=== PATIENT | male | born 1965 | race Caucasian/White ===

== ENCOUNTER 2020-07-27 15:39 | Observation (INO) ==
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
[2020-07-27] MEDS ORDERED: KETOROLAC 30 MG/ML VIAL IV STA (15:59)
[2020-07-27] MEDS ORDERED: PROCHLORPERAZINE 2 ML IV ONE (15:59)
[2020-07-27] MEDS ORDERED: SODIUM CHLORIDE 0.9% 1000ML 1,000 ML IV SCH ×2 (16:00→17:00)
[2020-07-27 16:46] LABS: Basophils # (auto) 0.02 K/uL (0-0.2); Basophils % (auto) 0.2 %; Hematocrit (blood only) 41.4 % (42-52); Hemoglobin 14.2 g/dL (14.0-18.0); Immature Granulocytes # (auto) 0.06 K/uL (0.00-0.02); Immature Granulocytes % (auto) 0.5 %; Lymphocytes # (auto) 0.39 K/uL (1.2-3.4); Lymphocytes % (auto) 3.1 %; Mean Corpuscular Hemoglobin 33.6 pg (25-34); Mean Corpuscular Hgb Conc 34.3 g/dL (32-36); Mean Corpuscular Volume 97.9 fL (80-100); Mean Platelet Volume 10.9 fL (7.4-10.4); Monocytes # (auto) 1.12 K/uL (0.11-0.59); Monocytes % (auto) 8.8 %; Neutrophils # (auto) 11.18 K/uL (1.4-6.5); Neutrophils % (auto) 87.4 %; Platelet Count 113 K/uL (130-400); RDW Coefficient of Variation 12.5 % (11.5-14.5); RDW Standard Deviation 43.9 fL (36.4-46.3); Red Blood Count 4.23 M/uL (4.7-6.1); White Blood Count 12.77 K/uL (4.8-10.8)
[2020-07-27 16:58] LABS: INR 1.2 (0.9-1.1); Partial Thromboplastin Time 28.8 Seconds (21.0-31.0)
[2020-07-27 17:05] LABS: Albumin Level 3.3 gm/dl (3.4-5.0); BUN Creatinine Ratio 3.8 (10-20); Calcium 9.4 mg/dl (8.5-10.1); Creatinine Clr Calc Pharmacy 52.5 ml/min; Est GFR (African American) 51.1; Est GFR (Non-African American) 44.1; Magnesium 1.1 mg/dl (1.8-2.4); Potassium 3.5 mmol/L (3.5-5.1)
[2020-07-27 17:16] LABS: Albumin Globulin Ratio 0.7 (0.9-2); Bilirubin,Total 2.4 mg/dl (0.2-1); Globulin 4.6 gm/dl (2.5-4.0); Total Protein 7.9 gm/dl (6.4-8.2); Troponin I 0.065 ng/ml (0-0.045)
[2020-07-27] MEDS ORDERED: SODIUM CHLORIDE 0.9% 1000ML 500 ML IV ONE (17:47)
[2020-07-27] MEDS ORDERED: VANCOMYCIN HCL 2,000 MG in SODIUM CHLORIDE 0.9% 500 ML IV ONE (17:47)
[2020-07-27] MEDS ORDERED: PIPERACILL/TAZOBAC CONSULT ACTIVE PRN (17:47)
[2020-07-27] MEDS ORDERED: VANCOMYCIN CONSULT ACTIVE PRN (17:47)
[2020-07-27] MEDS ORDERED: PIPERACILLIN/TAZOBACTAM 4.5 GM/120 ML BAG IV ONE (17:47)
[2020-07-27] MEDS ORDERED: OPTIRAY 320 125ml IV ONE (18:01)
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
--- NOTE | 2020-07-27 18:25 | CT Scan Report ---
UNENHANCED CT OF THE BRAIN; CT ANGIOGRAM OF THE BRAIN; CT ANGIOGRAM OF THE NECK CLINICAL HISTORY: Dizziness. Neck pain. COMPARISON STUDY: No priors. TECHNIQUE: Unenhanced axial CT scan of the brain is performed. Subsequently, following the IV adminis tration of 120 of Optiray 320, CT angiogram of the head and neck was performed from the aortic arch t o the vertex. Images are reviewed in the axial, sagittal, and coronal planes. 3-D MIPS images are cre ated and assessed. IV contrast was administered without complication. All measurements were calculate d based on NASCET criteria. A dose lowering technique was utilized adhering to the principles of ALA RA. CT DOSE: 1193.53 mGy.cm FINDINGS: Brain parenchyma: The brain parenchyma is normal in appearance. There is no hemorrhage, mass effect, or evidence of acute territorial ischemia by CT criteria. There is no evidence of enhancing mass lesi on on the angiogram phase images. The ventricles, sulci, and cisterns are normal in configuration. Gr ay-white matter differentiation is preserved. No extra-axial fluid collection is seen. Thoracic aorta: There is mild atherosclerotic calcification of the thoracic aorta. Visualized portion s of the thoracic aorta are normal in caliber. The aortic arch demonstrates standard 3-vessel anatomy . Right carotid arterial system: The right common carotid artery is widely patent, as are the right int ernal and external carotid arteries. Mild calcified plaque is seen in the carotid bulb. There is tort uosity of the distal right internal carotid artery. Left carotid arterial system: The left common carotid artery is widely patent. Atherosclerotic plaque in the carotid bulb causes less than 50% stenosis at the origin of the left internal carotid artery. The remainder of the left internal carotid artery is widely patent, as is the left external carotid artery. There is tortuosity of the distal internal carotid artery. Vertebral arteries: The vertebral arteries are widely patent bilaterally and codominant. Subclavian arteries: Widely patent bilaterally. Intracranial vasculature: There is a right posterior communicating artery. The internal carotid arter ies are patent at the skull base, as are the anterior and middle cerebral arteries bilaterally. The v ertebrobasilar system and posterior cerebral arteries are widely patent. The vertebral arteries are c odominant. There is no aneurysm, high-grade stenosis, or focal vessel cut off seen throughout the int racranial circulation. Jugular veins: Patent bilaterally. Dural sinuses: Patent. Lung apices: Partially visualized upper lobe lung parenchyma appears clear. Soft tissues: The visualized pharyngeal soft tissues are normal in appearance noting angiographic pha se technique. There are numerous calcified tonsilloliths. The oropharyngeal airway appears widely pat ent. The salivary and thyroid glands are normal in appearance. No cervical lymphadenopathy is seen. Skeletal structures: The calvarium appears intact. The cervical spine is within normal limits. No lyt ic or blastic lesion is seen. Orbits: The bony orbits are intact. Orbital contents are normal as imaged. Sinuses and mastoids: The paranasal sinuses are clear. The mastoid air cells are well pneumatized. IMPRESSION: 1. There is no hemorrhage, mass effect, or evidence of acute territorial ischemia by CT criteria. 2. Unremarkable CT angiogram of the brain. 3. Atherosclerotic plaque causes less than 50% luminal narrowing at the origin of the left internal c arotid artery. 4. Otherwise unremarkable CT angiogram of the neck. ACT 112: Negative or not required by law. Electronically signed by: Helder Victor M.D. 07/27/2020 6:24 PM
--- NOTE | 2020-07-27 19:23 | XRay Report ---
SINGLE VIEW CHEST CLINICAL HISTORY: Sepsis. FINDINGS: An AP, portable, upright chest radiograph is compared to study dated 10/02/2018. The examina tion is degraded by portable technique and patient rotation. The cardiomediastinal silhouette is unr emarkable. There is mild elevation of the right hemidiaphragm and bibasilar atelectasis. The lungs an d pleural spaces are otherwise clear. No pneumothorax is seen. The bony thorax is grossly intact. IMPRESSION: No active disease in the chest. ACT 112: Negative or not required by law. Electronically signed by: Helder Victor M.D. 07/27/2020 7:22 PM
[2020-07-27 20:20] LABS: Appearance Urine Cloudy (Clear); Bacteria Urine Automated 4+ (Negative); Bilirubin Urine Negative (Negative); Blood Urine 3+ (Negative); Color Urine Orange; Glucose Urine UA Negative (Negative); Ketones Urine Negative (Negative); Leukocyte Esterase Urine 2+ (Negative); Nitrite Urine Positive (Negative); Protein Urine Trace (Negative); RBC Urine Automated >30 /hpf (0-4); Specific Gravity Urine 1.044 (1.000-1.030); Urobilinogen Urine Negative (Negative); WBC Urine Automated >30 /hpf (0-5)
--- NOTE | 2020-07-27 20:36 | Magnetic Resonance Report ---
MRI OF THE BRAIN WITHOUT IV CONTRAST CLINICAL HISTORY: Dizziness. Weakness. Gait dysfunction. COMPARISON STUDY: CT of the brain dated 07/27/2020. TECHNIQUE: MRI of the brain was performed utilizing various T1 and T2-weighted sequences in the axial , sagittal, and coronal planes. IV contrast was not administered for this examination. FINDINGS: Brain parenchyma: There is age-related involutional change noting minimal microscopic hepatic disease . There is no hemorrhage or mass effect. There is no restricted diffusion to suggest acute ischemia. Chang-white matter differentiation is preserved. No extra-axial fluid collection is seen. The cerebell ar tonsils are normal in configuration. Ventricles, sulci, and cisterns: Prominent secondary to involutional change. Pituitary and sella: Unremarkable. Intracranial vasculature: Normal flow voids are maintained at the skull base. Orbits: The bony orbits are grossly intact. Orbital contents are normal in appearance. Sinuses and mastoids: Clear. Calvarium: Unremarkable. Cervical cord: Partially visualized cervical spinal cord is normal in morphology and signal intensity . IMPRESSION: No acute intracranial abnormality. ACT 112: Negative or not required by law. Electronically signed by: Helder Victor M.D. 07/27/2020 8:34 PM
[2020-07-27] MEDS ORDERED: ACETAMINOPHEN 325 MG TAB PO PRN (22:20)
[2020-07-27] MEDS ORDERED: PHARMACIST DISCHARGE MED REC CONSULT PRN (22:20)
[2020-07-27] MEDS ORDERED: ONDANSETRON INJ 2 MG/ML 2 ML VIAL IV PRN (22:20)
[2020-07-27] MEDS ORDERED: INFLUENZA ADMINISTRATION CHARGE ONE (22:52)
[2020-07-27] MEDS ORDERED: INFLUENZA VIRUS QUAD VACCINE 0.5 ML SYR IM ONE (22:52)
[2020-07-27] MEDS ORDERED: MULTI-VITAMIN INFUSION 10 ML, THIAMINE HCL 100 MG, FOLIC ACID 1 MG in SODIUM CHLORIDE 0... IV ONE (23:00)
[2020-07-27] MEDS: HEPARIN SOD 5,000 UNIT/0.5 ML VIAL SQ SCH (23:10)
[2020-07-27 23:32] LABS: Lyme Ab IgG w/WB Rflx Negative (Negative); Lyme Ab IgM w/WB Rflx Negative (Negative)
[2020-07-28 07:59] LABS: Hematocrit (blood only) 41.7 % (42-52); Mean Corpuscular Hemoglobin 33.4 pg (25-34); Mean Corpuscular Hgb Conc 33.6 g/dL (32-36); Mean Corpuscular Volume 99.5 fL (80-100); RDW Coefficient of Variation 12.7 % (11.5-14.5); RDW Standard Deviation 46.3 fL (36.4-46.3); Red Blood Count 4.19 M/uL (4.7-6.1)
[2020-07-28] MEDS: MULTIVITAMIN TAB PO SCH (08:05)
[2020-07-28] MEDS: FOLIC ACID 400 MCG TAB PO SCH (08:05)
[2020-07-28] MEDS: THIAMINE HCL 100 MG TAB PO SCH (08:05)
[2020-07-28] MEDS: HEPARIN SOD 5,000 UNIT/0.5 ML VIAL SQ SCH ×2 (08:05→22:02)
[2020-07-28] MEDS: ASPIRIN 81 MG ECTAB PO SCH (08:05)
[2020-07-28 08:09] LABS: Mean Platelet Volume 11.2 fL (7.4-10.4); Platelet Count 92 K/uL (130-400)
[2020-07-28] MEDS ORDERED: PIPERACILL/TAZOBAC CONSULT ACTIVE PRN (08:22)
[2020-07-28 08:24] LABS: Basophils # (auto) 0.02 K/uL (0-0.2); Basophils % (auto) 0.1 %; Immature Granulocytes # (auto) 0.11 K/uL (0.00-0.02); Immature Granulocytes % (auto) 0.6 %; Lymphocytes # (auto) 0.74 K/uL (1.2-3.4); Lymphocytes % (auto) 4.1 %; Monocytes # (auto) 1.49 K/uL (0.11-0.59); Monocytes % (auto) 8.2 %; Neutrophils # (auto) 15.74 K/uL (1.4-6.5)
[2020-07-28] MEDS ORDERED: SODIUM CHLORIDE 0.9% 1000ML 1,000 ML IV SCH (08:30)
[2020-07-28 08:33] LABS: BUN Creatinine Ratio 8.5 (10-20); Creatinine Clr Calc Pharmacy 85.8 ml/min; Est GFR (African American) 86.8; Est GFR (Non-African American) 74.9; Potassium 3.7 mmol/L (3.5-5.1)
--- NOTE | 2020-07-28 08:34 | Hospitalist Progress Note ---
Date of Service July 28, 2020 Assessment & Plan (1) Gram-negative bacteremia: Patient is a 55 year old male with PMHx Alcohol abuse, Tobacco use, Chronic low back pain, chronic diarrhea who presented initially for weakness, dizziness, and nausea and vomiting x2 while at home. Sepsis secondary to Gram Negative Bacteremia of unclear source -Patient presenting initially with septic like appearance of hypotension, tachycardia, fever -Admission leukocytosis 12.77, Lactate 4.1 --> 2.8, Procal 30 -Urine and one blood culture growing Gram neg bacilli. -Started on IV Zosyn and Vanco in the ED - continue - no clear source at this time but ?GI vs urinary -Check CT abdomen. Abnormal LFT with h/o AUD -Tbili 2.4, AST 194, AST 107 -GB US within normal limits Metabolic Encephalopathy -CT head and MRI without hemorrhage, acute or chronic infarcts -likely secondary to infection. Elevated Troponin -Found to be elevated at 0.065 on admission, has since peaked and downtrended -Echo today EF 60-65% without wall motion abnormalities or LVSF disorder Alcohol Abuse -AWSS score -Last drink 3 days ago. -Given 1 banana bag -Continue supplementation of Thiamine and Folate -discuss naltrexone on discharge. Hypomagnesemia -Repleted with 2g IV mag -Recheck in AM NEAL -Creatinine elevated 1.7 on admission, improved to 1.11 this AM with IVF -Resolved Dispo: PCU FEN: Regular, DC IVF DVT: Heparin 5000 q12h Code: DNR/DNI (2) Acute neck pain: (3) Fever: (4) Elevated lactic acid level: (5) Alcohol use: (6) Tobacco use: (7) Sepsis: Admission and Anticipated Discharge Date Admission Date: July 27, 2020 Supervising Physician Co-Signing Physician Notes Resident Physician Supervision Note: I independently interviewed and examined the patient and verified the cruz history and physical, reviewed labs and image studies, discussed the case with the resident Dr. Lazo and agree with the findings and care plan. Subjective Patient evaluated at the bedside this AM. Patient noting that he was feeling much better compared to the day prior, though he still continued to have neck pain. He notes that the pain is bilateral, but does not necessarily worsen with movement including flexion and extension. He states that his neck hurts the most whenever he goes to stand up straight. He is still endorsing hot and cold flashes with periods where he "can't get warm," though these have decreased since his admission. He noted having nausea and vomiting x2 the day prior, but it has since ceased. Patient notes that he is a fairly avid kendy and does so almost daily. He notes that he checks for ticks as well and has not found one himself. He states that he drinks roughly 3-4 beers daily, and that his last time was 2 days prior to admission. Discussed with patient in regards to any new injuries, cuts, scratches, bites, etc to which patient denies all. He also denies that he has had any dysuria or increased urinary frequency, though has noted that his urine has appeared more cloudy. Review of Systems Constitutional: + fever and + chills; no weight loss and no weight gain Eyes: no eye pain, no photophobia and no worsening vision Ear, Nose, Mouth, Throat: no ear pain, no tinnitus and no dizziness Respiratory: no cough, no dyspnea and no pain on inspiration Cardiovascular: no chest pain, no radiating jaw, neck or arm pain, no dyspnea, no dyspnea on exertion, no palpitations and no edema Gastrointestinal: no abdominal pain, no nausea, no vomiting, no constipation and no diarrhea/loose stools Genitourinary: no dysuria, no difficulty urinating, no urinary frequency, no urinary hesitancy, no urinary incontinence, no hematuria and no flank pain Musculoskeletal: + back pain and + neck pain; no limited range of motion Integumentary: + acne (on back); no new lesions Neurologic: + generalized weakness; no dizziness and no headache(s) Physical Exam Constitutional: well developed, well nourished, + well hydrated and cooperative; no acute distress, no physical limitations and not lethargic Eyes: PERRL, conjunctivae normal, anicteric sclerae ENMT: external ear and nose normal, oropharynx normal Neck: trachea midline, no thyromegaly Respiratory: normal respiratory effort, lungs clear to auscultation Cardiovascular: RRR, no murmur, no edema Gastrointestinal (Abdomen): normal bowel sounds, soft, nontender, no hepatosplenomegaly Musculoskeletal: no cyanosis or clubbing, extremities motor strength 5/5 Skin: no rashes, no lesions and no erythema Trauma: no laceration Significant acne noted on patients mid and upper back Neurologic: PERRL, EOMI, accommodation nl, no face palsy, no dysarthria Psychiatric: A+Ox3, euthymic affect Results & Data Results & Data ([facility]) Vital Signs (Past 12 Hours) Vital Signs Temp Pulse Pulse Resp BP Pulse Ox 07/28/20 07:46 103 H 07/28/20 07:07 37.2 C 107 H 19 115/73 96 07/28/20 03:37 37.6 C H 121 H 16 113/64 07/28/20 00:00 37.6 C H 110 H 18 112/76 96 07/27/20 23:59 109 H 07/27/20 22:33 37.5 C 115 H 20 120/77 98 Resident Activity Tracking Resident Involvement: Resident Care Provided Care Provided: Adult Hospital Medicine (1) Fever Fever type: unspecified Qualified Code(s): R50.9 - Fever, unspecified (2) Sepsis Sepsis acute organ dysfunction status: unspecified Sepsis type: sepsis due to unspecified organism Qualified Code(s): A41.9 - Sepsis, unspecified organism
[2020-07-28] MEDS ORDERED: PIPERACILLIN/TAZOBACTAM 4.5 GM in DEXTROSE 5% 100 ML IV ONE (08:45)
[2020-07-28 08:54] LABS: Troponin I 0.102 ng/ml (0-0.045)
[2020-07-28] MEDS: MAGNESIUM SULFATE / D5W 1 GM/100 ML BAG IV SCH ×2 (09:25→11:18)
[2020-07-28 09:41] LABS: Estimated Average Glucose 88 mg/dl; Hemoglobin A1C 4.7 % (4.5-5.6)
--- NOTE | 2020-07-28 10:36 | XCELERA ---
[id number]
[2020-07-28] MEDS ORDERED: VANCOMYCIN CONSULT ACTIVE PRN (11:06)
[2020-07-28] MEDS ORDERED: VANCOMYCIN HCL 1,250 MG in SODIUM CHLORIDE 0.9% 500 ML IV SCH (11:15)
--- NOTE | 2020-07-28 11:37 | Pharmacy Report ---
Pharmacy Abx Initial Consult - Date of Service July 28, 2020 - Pharmacy Dosing Scope Date of Consult: 07/28 Consultation requested by: Dr. Lazo Pharmacy is consulted to initiate vancomycin/zosyn IV/PO dosing therapy, order appropriate labs and adjust drug dose/frequency. - Subjective The patient is a 55 year old M admitted on 07/27/20 19:22. - Objective Height: 6 ft 1 in Weight: 79.7 kg Vital Signs (Past 12hrs): Vital Signs Temp Pulse Pulse Resp BP Pulse Ox 07/28/20 07:46 103 H 07/28/20 07:07 37.2 C 107 H 19 115/73 96 07/28/20 03:37 37.6 C H 121 H 16 113/64 07/28/20 00:00 37.6 C H 110 H 18 112/76 96 07/27/20 23:59 109 H Lab Results (24hrs): Laboratory Tests (24 Hours) 07/28/20 07/28/20 07/27/20 07:23 07:23 16:25 WBC 18.10 H Neut # (Auto) 15.74 H Creatinine 1.11 D Est Cr Clr Drug Dosing 85.8 Procalcitonin 30.88 H 07/27/20 07/27/20 16:25 16:25 WBC 12.77 H Neut # (Auto) 11.18 H Creatinine 1.72 H Est Cr Clr Drug Dosing 52.5 Procalcitonin Micro Results: 07/27/20 17:06 Aerobic Blood Culture - Pending Blood 07/27/20 16:25 Aerobic Blood Culture - Pending Blood Anaerobic Blood Culture - Pending - Assessment & Plan Assessment 55 year old with pmhx of chronic tobacco use, back pain, presenting with acute onset of dizziness and concern for TIA. Vancomycin and zosyn started empirically x 48 hrs Plan Vancomycin IV * Received loading dose of vancomycin 2000 mg( ~25 mg/kg/dose) last evening * Pharmacy consulted this AM for continued dosing. Estimated level still >10 mcg/ml - will start maintenance dosing of vancomycin now with 1 gm iv q 8 hrs based upon vancomycin AUC nomogram * Estimated kinetics: t1/2~9 hrs, ke~0.074, crcl ~85 ml/min * Plan to check trough if continued >48 hrs Piperacillin/tazobactam * 3.375 gm iv q 8 hrs - appropriate for CrCl >30 ml/min Pharmacy will continue to follow and will adjust dose/frequency as necessary. Thank you.
[2020-07-28] MEDS ORDERED: DOXYCYCLINE HYCLATE 100 MG in DEXTROSE 5% 100 ML IV SCH (12:00)
[2020-07-28] MEDS ORDERED: ACETAMINOPHEN 500 MG TAB PO ONE (12:00)
[2020-07-28] MEDS: VANCOMYCIN HCL 1,000 MG in SODIUM CHLORIDE 0.9% 250 ML IV SCH ×2 (12:15→19:34)
--- NOTE | 2020-07-28 13:54 | Ultrasound Report ---
US gallbladder CLINICAL HISTORY: elevated bili, LFT elevations COMPARISON STUDY: No previous studies for comparison. FINDINGS: This exam is compromised by suboptimal penetration. The liver is enlarged and echogenic. Hy poechoic foci within the gallbladder fossa favor fatty sparing. No biliary ductal dilatation is prese nt. Common bile duct measures 5 mm in caliber. The pancreatic body is normal. Head and tail are obscu red. The gallbladder is normal. No gallstones are identified. There is no right hydronephrosis. No de finite gallbladder wall thickening is noted. IMPRESSION: 1. Hepatic steatosis and hepatomegaly. 2. No gallstones or biliary ductal dilatation identified. 3. Partially obscured pancreas. ACT 112: Negative or not required by law. Electronically signed by: Don Callahan M.D. 07/28/2020 1:53 PM
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
[2020-07-28] MEDS: PIPERACILLIN/TAZOBACTAM 3.375 GM in DEXTROSE 5% 100 ML IV SCH ×2 (14:40→22:32)
--- NOTE | 2020-07-28 15:07 | Electrocardiogram Report ---
Test Reason : Blood Pressure : / mmHG Vent. Rate : 131 BPM Atrial Rate : 131 BPM P-R Int : 134 ms QRS Dur : 090 ms QT Int : 292 ms P-R-T Axes : 073 013 061 degrees QTc Int : 431 ms Sinus tachycardia Possible Left atrial enlargement Borderline ECG No previous ECGs available Confirmed by London Alfaro ([id number]) on 07/28/2020 3:07:06 PM Referred By: REFERRED SELF Confirmed By:London Alfaro
[2020-07-28] MEDS ORDERED: IOVERSOL 100ml IV ONE (20:10)
--- NOTE | 2020-07-28 20:44 | CT Scan Report ---
ABDOMEN AND PELVIS CT WITH IV CONTRAST CT DOSE: 323.80 mGy.cm HISTORY: gram neg bacteremia TECHNIQUE: Multiaxial CT images of the abdomen and pelvis were performed following the use of intrave nous contrast. A dose lowering technique was utilized adhering to the principles of ALARA. COMPARISON STUDY: None. FINDINGS: Trace bilateral pleural effusions. No pneumoperitoneum. No pneumatosis. No suspicious lytic or blastic osseous lesions. Hepatic steatosis. The main portal vein is patent. Trace pericholecystic fluid. No gallbladder wall thickening. The pancreas, spleen, adrenal glands, and kidneys are unremar kable. No hydronephrosis. Mild bilateral perinephric edema. Trace ascites along the right lower quadr ant. This partially obscures the appendix. However, the appendix appears to be normal in caliber. Mod erate bladder wall thickening. No retroperitoneal lymphadenopathy. Normal caliber abdominal aorta. No bowel wall thickening or obstruction. Gas and fluid seen within the nondistended colon. IMPRESSION: 1. No bowel wall thickening or obstruction. 2. The appendix is partially obscured by a trace amount of ascites but appears to be normal in calibe r. 3. Moderate bladder wall thickening. This could represent a cystitis. Recommend correlation with urin alysis. 4. Trace pleural effusions, trace pericholecystic fluid, and trace ascites. This favors a diffuse kyle matous state. There is no gallbladder wall thickening. 5. Gas and fluid within the nondistended colon which can be seen in the setting of a mild gastroenter itis/diarrheal illness. 6. Hepatic steatosis. ACT 112: Negative or not required by law. Electronically signed by: Bruce Salgado M.D. 07/28/2020 8:42 PM
[2020-07-29] MEDS: VANCOMYCIN HCL 1,000 MG in SODIUM CHLORIDE 0.9% 250 ML IV SCH (04:02)
--- NOTE | 2020-07-29 07:11 | Hospitalist Progress Note ---
Date of Service July 29, 2020 Assessment & Plan (1) Gram-negative bacteremia: Patient is a 55 year old male with PMHx Alcohol abuse, Tobacco use, Chronic low back pain, chronic diarrhea who presented initially for weakness, dizziness, and nausea and vomiting x2 while at home. Sepsis secondary to Gram Negative Bacteremia of unclear source -Patient presenting initially with septic like appearance of hypotension, tachycardia, fever -Admission leukocytosis 12.77, Lactate 4.1 --> 2.8, Procal 30 -Urine and one blood culture growing Gram neg bacilli. -Started on IV Zosyn and Vanco in the ED - continue - no clear source at this time but ?GI vs urinary -Check CT abdomen. Abnormal LFT with h/o AUD -Tbili 2.4, AST 194, AST 107 -GB US within normal limits Metabolic Encephalopathy -CT head and MRI without hemorrhage, acute or chronic infarcts -likely secondary to infection. Elevated Troponin -Found to be elevated at 0.065 on admission, has since peaked and downtrended -Echo EF 60-65% without wall motion abnormalities or LVSF disorder Alcohol Abuse -AWSS score -Last drink 3 days ago. -Given 1 banana bag -Continue supplementation of Thiamine and Folate -discuss naltrexone on discharge. Hypomagnesemia -Repleted with 2g IV mag -Recheck in AM NEAL -Creatinine elevated 1.7 on admission, improved to 1.11 this AM with IVF -Resolved Dispo: PCU FEN: Regular, DC IVF DVT: Heparin 5000 q12h Code: DNR/DNI (2) Acute neck pain: (3) Fever: (4) Elevated lactic acid level: (5) Alcohol use: (6) Tobacco use: (7) Sepsis: Admission and Anticipated Discharge Date Admission Date: July 27, 2020 Results & Data Results & Data ([facility]) Vital Signs (Past 12 Hours) Vital Signs Temp Pulse Pulse Resp BP Pulse Ox 07/29/20 04:06 37.9 C H 97 H 16 123/67 94 07/29/20 04:03 37.9 C H 07/29/20 00:52 102 H 07/28/20 23:47 37.9 C H 101 H 18 114/70 96 07/28/20 19:45 37.5 C 91 H 16 114/53 L 95 (1) Fever Fever type: unspecified Qualified Code(s): R50.9 - Fever, unspecified (2) Sepsis Sepsis acute organ dysfunction status: unspecified Sepsis type: sepsis due to unspecified organism Qualified Code(s): A41.9 - Sepsis, unspecified organism
[2020-07-29 07:46] LABS: Hematocrit (blood only) 35.1 % (42-52); Hemoglobin 11.8 g/dL (14.0-18.0); Mean Corpuscular Hemoglobin 32.7 pg (25-34); Mean Corpuscular Hgb Conc 33.6 g/dL (32-36); Mean Corpuscular Volume 97.2 fL (80-100); Platelet Count 83 K/uL (130-400); RDW Coefficient of Variation 12.5 % (11.5-14.5); RDW Standard Deviation 44.4 fL (36.4-46.3); Red Blood Count 3.61 M/uL (4.7-6.1); White Blood Count 7.11 K/uL (4.8-10.8)
[2020-07-29 07:57] LABS: Basophils # (auto) 0.02 K/uL (0-0.2); Basophils % (auto) 0.3 %; Eosinophils # (auto) 0.04 K/uL (0-0.5); Eosinophils % (auto) 0.6 %; Immature Granulocytes # (auto) 0.01 K/uL (0.00-0.02); Immature Granulocytes % (auto) 0.1 %; Lymphocytes # (auto) 0.54 K/uL (1.2-3.4); Lymphocytes % (auto) 7.6 %; Monocytes # (auto) 0.74 K/uL (0.11-0.59); Monocytes % (auto) 10.4 %; Neutrophils # (auto) 5.76 K/uL (1.4-6.5)
[2020-07-29 08:07] LABS: BUN Creatinine Ratio 11.4 (10-20); Calcium 8.1 mg/dl (8.5-10.1); Creatinine Clr Calc Pharmacy 135.5 ml/min; Est GFR (African American) 126.3; Est GFR (Non-African American) 108.9; Magnesium 1.8 mg/dl (1.8-2.4); Phosphorus 2.1 mg/dl (2.5-4.9); Potassium 3.3 mmol/L (3.5-5.1)
[2020-07-29] MEDS: PIPERACILLIN/TAZOBACTAM 3.375 GM in DEXTROSE 5% 100 ML IV SCH (08:13)
[2020-07-29] MEDS ORDERED: POTASSIUM PHOS 3 MMOL/1 ML INFUSION IV STA (08:18)
[2020-07-29] MEDS: MULTIVITAMIN TAB PO SCH (08:24)
[2020-07-29] MEDS: ASPIRIN 81 MG ECTAB PO SCH (08:25)
[2020-07-29] MEDS: THIAMINE HCL 100 MG TAB PO SCH (08:25)
[2020-07-29] MEDS: FOLIC ACID 400 MCG TAB PO SCH (08:25)
[2020-07-29] MEDS: HEPARIN SOD 5,000 UNIT/0.5 ML VIAL SQ SCH (08:25)
[2020-07-29 08:33] LABS: Folate (Folic Acid) 9.1 ng/ml (>5.38)
[2020-07-29] MEDS ORDERED: POTASSIUM PHOSPHATE 15 MMOL in SODIUM CHLORIDE 0.9% 250 ML IV ONE (08:45)
[2020-07-29] MEDS ORDERED: MELATONIN 3 MG TAB PO PRN (09:44)
[2020-07-29] MEDS ORDERED: CIPROFLOXACIN / D5W 400 MG/200 ML BAG IV SCH (10:00)
--- NOTE | 2020-07-29 15:15 | Discharge Summary ---
Date of Service July 29, 2020 Admission HPI Per Admitting Provider This is a 55 yo M with PMhx of chronic tobacco use (chews), chronic low back pain, chronic diarrhea, who presents with acute onset of dizziness, weakness, gait disturbance, running. 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 He was out in very low temperatures and attempted to keep his head towards the ground because it was so cold on his face while servicing half of the lawn. Upon finishing this around 1230 he reported back to work, and was sent home due to increased dizziness and weakness. Once he was home, the patient was seen and examined this morning. Patient reports feeling well went to sleep due to feeling extremely tired. When he awoke he still had issues with dizziness and felt that he was unable to get up out of his recliner, could not stand, therefore crawled across the floor and up the stairs to his main floor and waited for his brother to return home. He at that time asked for him to call an ambulance due to not feeling himself. 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 He has a indoor pet cat and reports it is treated for ticks. Patient denies any recent sick contacts, no fever, chills, flulike illness, or any known COVID-19 positive contacts. Admission Exam Per Admitting Provider General: awake, alert, no apparent distress, +poor hygiene Head: Normocephalic, atraumatic, + pitting of the face over nose, difficult to assess due to meza ENT: PERRL, EOMI, no pharyngeal exudate, mucous membranes moist, +poor dentition Chest: Clear to auscultation, on room air, no adventitious breath sounds Back: Multiple areas of excoriations over upper shoulder blades, + pitting skin lesions over back Cardiac: Regular rhythm, tachycardia with heart rate in 120s to 130s at bedside at rest no murmur, no JVD, normal peripheral pulses, good capillary refill Abdominal: NABS x 4 quadrants, soft, nondistended, nontender to palpation, no rebound or guarding Extremities: Normal inspection, no peripheral edema or erythema, calfs nontender to palpation Psych: Normal mood and affect Neuro: AAO x 3, strength intact bilaterally and rated 5/5, no motor deficits, speech is clear, no peripheral sensory deficits Principal Diagnosis Gram Negative Septicemia with suspected urinary source Discharge Exam Constitutional well developed, well nourished, + well hydrated and cooperative; no acute distress, no physical limitations and not lethargic Eyes PERRL, conjunctivae normal, anicteric sclerae ENMT external ear and nose normal, oropharynx normal Neck trachea midline, no thyromegaly Respiratory normal respiratory effort, lungs clear to auscultation Cardiovascular RRR, no murmur, no edema Gastrointestinal (Abdomen) normal bowel sounds, soft, nontender, no hepatosplenomegaly Musculoskeletal no cyanosis or clubbing, extremities motor strength 5/5 Skin no rashes, no lesions and no erythema Trauma: no laceration Neurologic PERRL, EOMI, accommodation nl, no face palsy, no dysarthria Psychiatric A+Ox3, euthymic affect Discharge Data Allergies Allergy/AdvReac Type Severity Reaction Status Date / Time No Known Allergies Allergy Verified 07/27/20 17:42 Consultations 07/27/20 17:55 ED Decision to Admit Stat 07/27/20 22:20 Consult Case Management - Discharge Planning Routine Consult Neurology Routine Ordered Studies 07/27/20 15:59 CT angio head w con Stat CT angio neck with con Stat CT head/brain wo con Stat 07/27/20 19:22 MR brain wo con Stat 07/28/20 13:30 US gallbladder Urgent 07/28/20 16:57 CT abd pelvis IV con only Routine Hospital Course (1) Gram-negative bacteremia: Patient is a 55 year old male with PMHx Alcohol abuse, Tobacco use, Chronic low back pain, chronic diarrhea who presented initially for weakness, d izziness, and nausea and vomiting x2 while at home. Sepsis secondary to Gram Negative Bacteremia of unclear source, suspect urinary -Patient presenting initially with hypotension, tachycardia, fever -Admission leukocytosis 12.77, Lactate 4.1 --> 2.8, Procal 30 -Urine and blood culture grew Klebsiella Oxytoca -Started on IV Zosyn and Vanco in the ED and continued through hospital stay -CT abdomen with bladder wall thickening, suspicious for cystitis -Patient with vast improvement, transitioned to IV then oral Ciprofloxacin 500mg PO x8 days to complete 10 day course of abx on discharge. -Follow up with PCP in 1-2 weeks. Abnormal LFT with h/o AUD -Tbili 2.4, AST 194, AST 107 -GB US within normal limits -Suspect secondary to excessive alcohol use. Metabolic Encephalopathy -CT head and MRI without hemorrhage, acute or chronic infarcts -likely secondary to infection. -Resolved Elevated Troponin -Found to be elevated at 0.065 on admission, has since peaked and downtrended -Echo EF 60-65% without wall motion abnormalities or LVSF disorder Alcohol Abuse -Last drink 3 days prior to admission -Given 1 banana bag on admission -Continued supplementation of Thiamine and Folate -Discussed Naltrexone on discharge, though patient noting he would prefer to continue alcohol use. Hypomagnesemia -Repleted with 2g IV mag -Resolved NEAL -Creatinine elevated 1.7 on admission, improved wtih IVF -Resolved (2) Acute neck pain: (3) Fever: (4) Elevated lactic acid level: (5) Alcohol use: (6) Tobacco use: (7) Sepsis: Total Time Total Time Spent Total Time Spent (In Minutes): see attending attestation Discharge Plan Discharge Items Patient Disposition: Home - Self-Care Reason For Visit: WEAKNESS, DIZZINESS, GAIT DISTURBANCE Discharge Diagnosis: Sepsis secondary to Gram Negative Bacteremia with suspected urinary source Activity: Per Instructions section Non-emergency contact: Primary Care Provider Call non-emergency contact if: you have any medication questions, your symptoms worsen and your temperature is above 101 Follow-up/Referrals: PCP,NO [Primary Care Provider] - Diet: Regular Addtl Attending Provider Instructions: Mr. Restrepo, It was our pleasure caring for you at [facility] from 07/27- 07/29/20. Please see below for a summary of your care. Sepsis secondary to Gram Negative Bacteremia with suspected Urinary source -When you had initially presented to the hospital, there were strong concerns that you had an infection that caused your symptoms of weakness and dizziness. -You were started on IV antibiotics and noted improvement while receiving them. -Your blood and urine cultures both grew a bacteria called Klebsiella oxytoca, both which were susceptible to the antibiotics provided. -Please continue to take the antibiotic prescribed: Ciprofloxacin 500mg twice a day by mouth for 8 more days, your first dose will be tonight. Alcohol use -While inpatient you had noted to us that you have roughly 3 beers daily and up to a case at a time when you go to the cabin. -We would recommend that you reduce your alcohol intake for over all health benefit. Pending Studies at Discharge: No Stand-Alone Forms: My [facility] [employer], Smoking Cessation Medications and DC Order Prescriptions: New ciprofloxacin HCl 500 mg tablet 500 mg PO BID 8 Days Qty: 17 RF: 0 No Action No Known Home Medications RF: 0 Discharge Orders: Discharge Order (Routine); Ordered 07/29/20 Ordered By: Eloy Lazo Admission Data Admit Date/Time: 07/27/20 19:22 Attending Provider: Monique Kumar Admit Provider: Ajay Oconnell Primary Care Provider: PCP,JOSÉ MIGUEL Other Providers: Laverne White ; Ajay Oconnell Other Interventions: Discharge Summary Assessment (RN) Last Done: 07/29/20 15:15 Supervising Physician Co-Signing Physician Notes Resident Physician Supervision Note: I independently interviewed and examined the patient and verified the cruz history and physical, reviewed labs and image studies, discussed the case with the resident Dr. Lazo and agree with the findings and care plan. Resident Activity Tracking Resident Involvement: Resident Care Provided Care Provided: Adult Hospital Medicine
[2020-07-31 21:41] LABS: Ehrlichia chaff IgG Ab <1:64 (<1:64); Ehrlichia chaff IgM Ab <1:20 (<1:20)
== END 2020-07-29 15:31 | disposition home or self-care (01) ==
LOC: ED 15:39 → 2S 15:39 → SUATTDRO 19:22 → 2S 20:51

== ENCOUNTER 2021-06-06 14:39 | Inpatient (IN) ==
[2021-06-06] MEDS ORDERED: SODIUM CHLORIDE 0.9% 1000ML 1,000 ML IV SCH (15:30)
[2021-06-06] MEDS ORDERED: cefTRIAXone SODIUM 2,000 MG/70 ML BAG IV STA (15:33)
[2021-06-06] MEDS ORDERED: ACETAMINOPHEN 325 MG TAB PO STA (15:33)
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
[2021-06-06 15:48] LABS: Appearance Urine Clear (Clear); Bilirubin Urine Negative (Negative); Blood Urine Negative (Negative); Color Urine Yellow; Glucose Urine UA Negative (Negative); Ketones Urine Negative (Negative); Leukocyte Esterase Urine Negative (Negative); Nitrite Urine Negative (Negative); Protein Urine Negative (Negative); Specific Gravity Urine 1.004 (1.000-1.030); Urobilinogen Urine Negative (Negative); pH Urine 8.5 (4.5-7.5)
[2021-06-06 16:14] LABS: Basophils # (auto) 0.02 K/uL (0-0.2); Basophils % (auto) 0.2 %; Hematocrit (blood only) 37.1 % (42-52); Hemoglobin 12.8 g/dL (14.0-18.0); Immature Granulocytes # (auto) 0.02 K/uL (0.00-0.02); Immature Granulocytes % (auto) 0.2 %; Lymphocytes # (auto) 1.09 K/uL (1.2-3.4); Lymphocytes % (auto) 8.7 %; Mean Corpuscular Hemoglobin 34.5 pg (25-34); Mean Corpuscular Hgb Conc 34.5 g/dL (32-36); Mean Platelet Volume 10.4 fL (7.4-10.4); Monocytes # (auto) 1.12 K/uL (0.11-0.59); Monocytes % (auto) 8.9 %; Neutrophils # (auto) 10.29 K/uL (1.4-6.5); Platelet Count 116 K/uL (130-400); RDW Coefficient of Variation 13.5 % (11.5-14.5); RDW Standard Deviation 49.4 fL (36.4-46.3); Red Blood Count 3.71 M/uL (4.7-6.1); White Blood Count 12.54 K/uL (4.8-10.8)
[2021-06-06 16:31] LABS: INR 1.4 (0.9-1.1); Partial Thromboplastin Ratio 1.2; Partial Thromboplastin Time 31.3 Seconds (21.0-31.0)
[2021-06-06 16:32] LABS: Albumin Level 2.3 gm/dl (3.4-5.0); BUN Creatinine Ratio 4.5 (10-20); Calcium 8.1 mg/dl (8.5-10.1); Creatinine Clr Calc Pharmacy 111.7 ml/min; Est GFR (African American) 116.6 ml/min; Est GFR (Non-African American) 100.6 ml/min; Magnesium 1.6 mg/dl (1.8-2.4); Potassium 3.9 mmol/L (3.5-5.1)
--- NOTE | 2021-06-06 16:34 | XRay Report ---
XR chest 1V portable HISTORY: 56 years-old Male SEPSIS acute sepsis COMPARISON: Chest radiograph 09/13/2020 TECHNIQUE: Portable AP view the chest FINDINGS: Cardiomediastinal and hilar silhouettes are within normal limits. Ill-defined opacities of the left g reater than right lung bases. No pneumothorax, large pleural effusion or overt pulmonary edema. No ac [place] fracture. Degenerative changes of the spine. IMPRESSION: Subtle ill-defined left greater than right bibasilar opacities suggest atelectasis versus pneumonitis. ACT 112: Negative or not required by law. The above report was generated using voice recognition software. It may contain grammatical, syntax o r spelling errors. Electronically signed by: Abebe Schafer M.D. 06/06/2021 4:33 PM
[2021-06-06 16:37] LABS: Albumin Globulin Ratio 0.5 (0.9-2); Bilirubin,Total 2.5 mg/dl (0.2-1); Globulin 4.9 gm/dl (2.5-4.0); Total Protein 7.2 gm/dl (6.4-8.2); Troponin I 0.015 ng/ml (0-0.045)
[2021-06-06] MEDS ORDERED: VANCOMYCIN CONSULT ACTIVE PRN (17:22)
[2021-06-06] MEDS ORDERED: PIPERACILL/TAZOBAC CONSULT ACTIVE PRN (17:23)
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
[2021-06-06] MEDS ORDERED: VANCOMYCIN HCL 1,500 MG in SODIUM CHLORIDE 0.9% 500 ML IV STA (17:57)
[2021-06-06] MEDS ORDERED: PIPERACILLIN/TAZOBACTAM 4.5 GM/120 ML BAG IV STA (17:58)
--- NOTE | 2021-06-06 19:05 | CT Scan Report ---
ABDOMEN AND PELVIS CT WITH IV CONTRAST CT DOSE: 296.68 mGy.cm HISTORY: Acute sepsis with diarrhea sepsis, diarrhea, elevated mariana, ?ascites ?coliti TECHNIQUE: Multiaxial CT images of the abdomen and pelvis were performed following the IV administrat ion of Optiray, A dose lowering technique was utilized adhering to the principles of ALARA. COMPARISON STUDY: CT abdomen and pelvis 09/13/2020 FINDINGS: Clear lung bases. No pneumatosis or pneumoperitoneum. The imaged inferior cardiac chambers are unremarkable. The spleen is enlarged measuring up to 15 cm. The liver is enlarged measuring up to approximately 19 cm at the mid clavicular line. Heterogeneity of the liver with geographic hepatic s teatosis. Recanalized umbilical vein. Mild marginal nodularity of the inferior right hepatic lobe red emonstrated. No discrete hepatic mass identified. Patency of the portal vein. Moderately distended ga llbladder. No shadowing cholelithiasis or gallbladder wall thickening identified. Unremarkable pancre as and adrenal glands. The kidneys are within normal limits. No hydronephrosis. Prostamegaly with mild urinary bladder wall thickening. No abdominal aortic aneurysm or adenopathy. Unremarkable IVC. No bowel obstruction or small bowel wall thickening. Scattered small bowel air-fluid levels of the lo wer abdomen and pelvis. There is mild wall thickening of the cecum and ascending colon with pericolon ic stranding. Nondilated appendix. Unremarkable soft tissues. No acute fracture. Degenerative changes of the spine, pelvis and hips. IMPRESSION: 1. Mild wall thickening with pericolonic stranding involves the cecum and ascending colon suggestive of a nonspecific colitis. 2. No bowel obstruction or pneumoperitoneum. 3. Hepatosplenomegaly with hepatic steatosis. 4. Moderately distended gallbladder without cholelithiasis identified. 5. Prostamegaly with findings suggestive of chronic bladder outlet obstruction. ACT 112: Negative or not required by law. The above report was generated using voice recognition software. It may contain grammatical, syntax o r spelling errors. Electronically signed by: Abebe Schafer M.D. 06/06/2021 7:04 PM
[2021-06-06] MEDS ORDERED: ACETAMINOPHEN 325 MG TAB PO PRN (22:09)
[2021-06-06] MEDS ORDERED: ONDANSETRON INJ 2 MG/ML 2 ML VIAL IV PRN (22:09)
[2021-06-06] MEDS ORDERED: D5NSS + 20MEQ KCL 20 MEQ/1,000 ML BAG IV SCH (22:30)
[2021-06-06] MEDS: CIPROFLOXACIN HCL 0.3% OP SOLN 2.5 ML BTL OPB SCH (22:38)
[2021-06-07] MEDS: PIPERACILLIN/TAZOBACTAM 3.375 GM in DEXTROSE 5% 100 ML IV SCH ×3 (00:28→15:43)
[2021-06-07] MEDS: CIPROFLOXACIN HCL 0.3% OP SOLN 2.5 ML BTL OPB SCH ×5 (04:16→19:34)
[2021-06-07] MEDS ORDERED: VANCOMYCIN HCL 1,000 MG in SODIUM CHLORIDE 0.9% 250 ML IV SCH (07:00)
[2021-06-07 07:23] LABS: Basophils # (auto) 0.03 K/uL (0-0.2); Basophils % (auto) 0.5 %; Eosinophils # (auto) 0.01 K/uL (0-0.5); Eosinophils % (auto) 0.2 %; Hematocrit (blood only) 36.1 % (42-52); Hemoglobin 11.8 g/dL (14.0-18.0); Immature Granulocytes # (auto) 0.01 K/uL (0.00-0.02); Immature Granulocytes % (auto) 0.2 %; Lymphocytes # (auto) 0.51 K/uL (1.2-3.4); Lymphocytes % (auto) 8.2 %; Mean Corpuscular Hemoglobin 33.8 pg (25-34); Mean Corpuscular Hgb Conc 32.7 g/dL (32-36); Mean Corpuscular Volume 103.4 fL (80-100); Mean Platelet Volume 10.8 fL (7.4-10.4); Monocytes # (auto) 0.83 K/uL (0.11-0.59); Monocytes % (auto) 13.3 %; Neutrophils # (auto) 4.83 K/uL (1.4-6.5); Neutrophils % (auto) 77.6 %; Platelet Count 106 K/uL (130-400); RDW Coefficient of Variation 13.7 % (11.5-14.5); RDW Standard Deviation 51.8 fL (36.4-46.3); Red Blood Count 3.49 M/uL (4.7-6.1); White Blood Count 6.22 K/uL (4.8-10.8)
--- NOTE | 2021-06-07 08:01 | Hospitalist Progress Note ---
Date of Service June 07, 2021 Assessment & Plan (1) Sepsis: Plan: Suspect 2/2 Enteritis - Lactate 1.5. - Febrile, tachycardic, mildly hypotensive, with leukocytosis on admission - Leukocytosis normalized 06/06 - CXR: suble L>R bibasilar opacities suggestive of pneumonitis. - CT-Ab: Mild wall thickening with pericolonic stranding involves the cecum and ascending colon suggestive of a nonspecific colitis. No bowel obstruction or pneumoperitoneum. Hepatosplenomegaly with hepatic steatosis. Moderately distended gallbladder without cholelithiasis identified. Prostamegaly with findings suggestive of chronic bladder outlet obstruction. - Diarrhea and pericolonic stranding consistent with enteritis/colitis - Interval gallbladder distension new from 09/2020 with elevated bilirubin and INR, ?underlying gallbladder disease although no stones on CT. GI consulted, ?MRCP - Mildly elevated billirubin and INR concerning for liver etiology however no abdominal pain here. - Left conjunctivitis present but no surrounding erythema to suggest preseptal cellulitis - Initially placed on BSABx Vanc/Zosyn. Narrowed to zosyn, BC pending (2) Gallbladder dilatation: Plan: - No murphys sign/RUQ pain - CT-A/P with interval gallbladder distension since 09/2020 with elevated bili (2.5 from prior 1.1) - GI consulted ?MRCP/ERCP (3) Bacterial conjunctivitis of left eye: Plan: Left eye with injected conjunctiva, purulence at the lateral canthus and superior eyelid margin. Pupils equal and reactive to light. Visual acuity comparatively diminished compared to right eye, improves with blinking consistent w/ conjunctivitis. Reportedly on Cipro drops, somewhat inconsistent use per nursing Continue ciprofloxacin drops every 4 hours, warm compresses as needed If not clinically improving with above, discuss with optho (4) Elevated bilirubin: Plan: - See above (5) Colitis: Plan: VTE Prophylaxis - low risk, SCDs Diet - regular Disposition - admit to med/tele Admission and Anticipated Discharge Date Admission Date: June 06, 2021 Zackery Jasper seen at the bedside this morning. He reports he continues to have some abdominal discomfort and nausea, but denies abdominal pain. He feels he has had hot to cold alternations and chills. No diarrhea today, has not had a bowel movement yet this morning. Denies chest pain, chest pressure, difficulty breathing, shortness of breath, lightheadedness, dizziness. He reports he has not had any difficulty with greasy/fatty foods in the past and notes he actually felt well after eating a cheese steak last week. 3 of alcohol use, denies any alcohol the last 3 to 4 weeks with no withdrawal symptoms. Patient continues to have bacterial conjunctivitis of the left eye. Reports he has intermittently use Cipro drops in the left eye. No itching of the eye. Reports vision is somewhat more clouded, improves with blinking. Review of Systems Review of Systems: Constitutional: See HPI Eyes: See HPI ENT: Denies ear pain, sore throat, sinus pain Cardiovascular: Denies Chest pain, chest pressure, palpitations, extremity swelling Respiratory: Denies shortness of breath, cough, sputum production, difficulty breathing Gastrointestinal: See HPI Genitourinary: Denies dysuria, urinary frequency Musculoskeletal: Denies acute focal weakness, muscle aches/pain, joint aches/pain Integumentary:Denies acute rash, lesions, bruising Neurological: Denies headache, numbness, tingling, focal weakness Physical Exam Physical Exam: General: A&Ox3. NAD. Cooperative. HEENT: Left eye with injected conjunctive a, purulence at the lateral canthus and superior eyelid margin. Pupils equal and reactive to light. Visual acuity comparatively diminished compared to right eye, improves with blinking. Pulm: CTAB A&P. -wheezes, -rales, -rhonchi. Symmetrical chest rise. No increase work of breathing. No respiratory distress. Cardiac: RRR, -mrg. Radial pulses intact and symmetrical. Abdominal: Nontender, nondistended, soft. BS present. No Watson sign. CRANIAL NERVES: II: Pupils equal and reactive. Acuity as noted above III, IV, : EOM intact, no gaze preference or deviation, no nystagmus. V: normal sensation in V1, V2, and V3 segments bilaterally VII: no asymmetry, no nasolabial fold flattening VIII: normal hearing to speech IX, X: normal palatal elevation, no uvular deviation XI: 5/5 head turn and 5/5 shoulder shrug bilaterally XII: midline tongue protrusion MOTOR: RUE: 5/5 bake room worker strength, finger flexion/extension, interosseus LUE: 5/5 bake room worker strength, finger flexion/extension, interosseus RLE: 5/5 to hip flexion ankle dorsiflexion/plantarflexion LLE: 5/5 to hip flexion, ankle dorsiflexion/plantarflexion SENSORY: Normal to touch in upper and lower extremities without deficit or asymmetry Results & Data Results & Data ([facility]) Vital Signs (Past 12 Hours) Vital Signs Temp Pulse Pulse Resp BP BP BP 06/07/21 07:30 37.4 C 83 20 114/68 06/07/21 03:41 37.1 C 101 H 20 129/61 06/06/21 22:53 36.8 C 89 18 115/70 06/06/21 22:23 86 06/06/21 21:50 36.7 C 84 16 143/81 H 06/06/21 21:35 68 20 110/64 06/06/21 21:30 74 16 110/64 06/06/21 21:00 75 14 99/61 L 06/06/21 20:30 75 14 107/59 L 06/06/21 20:00 77 16 104/61 Pulse Ox 06/07/21 07:30 95 06/07/21 03:41 95 06/06/21 22:53 95 06/06/21 22:23 06/06/21 21:50 99 06/06/21 21:35 97 06/06/21 21:30 97 06/06/21 21:00 98 06/06/21 20:30 95 06/06/21 20:00 95 PG Care Time/CCT Total # of Minutes Spent Total Time Spent with Patient: Total time spent is greater than 50% in coordination of care (as documented) at patient's floor/unit and/or counseling patient: Coding Level of Care Code 22719 Subseq Hosp Care Lvl 2 Diagnoses Sepsis A41.9 Sepsis acute organ dysfunction status: unspecified Sepsis type: sepsis due to unspecified organism Bacterial conjunctivitis of left eye H10.9 Elevated bilirubin R17 Gallbladder dilatation K82.8 Colitis K52.9 (1) Sepsis Sepsis acute organ dysfunction status: unspecified Sepsis type: sepsis due to unspecified organism Qualified Code(s): A41.9 - Sepsis, unspecified organism
[2021-06-07 08:07] LABS: Albumin Level 1.9 gm/dl (3.4-5.0); BUN Creatinine Ratio 6.1 (10-20); Calcium 7.9 mg/dl (8.5-10.1); Creatinine Clr Calc Pharmacy 119.7 ml/min; Est GFR (African American) 120.4 ml/min; Est GFR (Non-African American) 103.8 ml/min; Potassium 3.6 mmol/L (3.5-5.1)
[2021-06-07 08:10] LABS: Albumin Globulin Ratio 0.4 (0.9-2); Bilirubin,Total 2.1 mg/dl (0.2-1); Globulin 4.3 gm/dl (2.5-4.0); Total Protein 6.2 gm/dl (6.4-8.2)
[2021-06-07 11:19] LABS: Ferritin 794.5 ng/ml (8-388)
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
[2021-06-07 13:48] LABS: Hepatitis B Surf Ag Rflx Conf Neg (Neg)
[2021-06-07 14:17] LABS: Hepatitis C IgG 13Yrs+Old_Rflx Neg (Neg)
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
--- NOTE | 2021-06-07 19:47 | Magnetic Resonance Report ---
MRCP CLINICAL HISTORY: Elevated hepatic transaminases. COMPARISON STUDY: Abdominal CT dated 06/06/2021. TECHNIQUE: Abdominal MRCP is performed utilizing various T1- and T2-weighted sequences in the axial a nd coronal planes. IV contrast was not administered for this examination. 3-D reformats are created a nd assessed. The examination is compromised by motion artifact. FINDINGS: The gallbladder is distended. No gallstones are identified. No intra- or extrahepatic biliary ductal dilatation is identified. The common bile duct is normal in caliber, measuring up to 4 mm in diameter . No intraluminal filling defects are identified to suggest choledocholithiasis. The pancreatic duct is normal in caliber. The liver is enlarged, heterogeneous, and steatotic, measuring 23.8 cm in length. Nodularity of the s urface contour suggests changes of cirrhosis. The spleen is enlarged, measuring 15 cm in length. Ther e is upper abdominal ascites. The unenhanced pancreas, adrenal glands, and kidneys are grossly normal . The abdominal aorta is normal in caliber. No bowel obstruction is seen. Trace pleural effusions are suspected. The bony structures appear intact. IMPRESSION: 1. Distended gallbladder with no gallstones identified. 2. There is no intra- or extrahepatic biliary ductal dilatation, and no choledocholithiasis. 3. The liver is enlarged, heterogeneous, and steatotic. Nodularity of the surface contour suggests mo rphologic change of cirrhosis. 4. Splenomegaly. 5. There is a small volume of upper abdominal ascites which is new from yesterday. Dictated: 06/07/2021 7:10 PM Transcribed: 06/07/2021 7:24 PM [id number] [facility] [place] Electronically signed by: Helder Victor M.D. 06/07/2021 7:45 PM
[2021-06-08] MEDS: PIPERACILLIN/TAZOBACTAM 3.375 GM in DEXTROSE 5% 100 ML IV SCH ×4 (00:03→23:41)
[2021-06-08] MEDS: CIPROFLOXACIN HCL 0.3% OP SOLN 2.5 ML BTL OPB SCH ×3 (00:05→08:27)
[2021-06-08] MEDS ORDERED: MELATONIN 3 MG TAB PO PRN (00:13)
[2021-06-08] MEDS ORDERED: MELATONIN 3 MG TAB PO ONE (00:30)
--- NOTE | 2021-06-08 05:08 | Electrocardiogram Report ---
Test Reason : Blood Pressure : / mmHG Vent. Rate : 109 BPM Atrial Rate : 109 BPM P-R Int : 142 ms QRS Dur : 090 ms QT Int : 346 ms P-R-T Axes : 056 016 055 degrees QTc Int : 465 ms Sinus tachycardia Otherwise normal ECG When compared with ECG of 28-OCT-2020 08:04, No significant change was found Confirmed by London Alfaro ([id number]) on 06/08/2021 5:08:10 AM Referred By: REFERRED SELF Confirmed By:London Alfaro
[2021-06-08 06:28] LABS: Basophils # (auto) 0.03 K/uL (0-0.2); Basophils % (auto) 0.5 %; Eosinophils # (auto) 0.12 K/uL (0-0.5); Eosinophils % (auto) 1.9 %; Hematocrit (blood only) 37.2 % (42-52); Hemoglobin 12.6 g/dL (14.0-18.0); Immature Granulocytes # (auto) 0.01 K/uL (0.00-0.02); Immature Granulocytes % (auto) 0.2 %; Lymphocytes % (auto) 16.2 %; Mean Corpuscular Hemoglobin 34.1 pg (25-34); Mean Corpuscular Hgb Conc 33.9 g/dL (32-36); Mean Corpuscular Volume 100.5 fL (80-100); Mean Platelet Volume 10.3 fL (7.4-10.4); Monocytes # (auto) 0.98 K/uL (0.11-0.59); Monocytes % (auto) 15.9 %; Neutrophils # (auto) 4.02 K/uL (1.4-6.5); Neutrophils % (auto) 65.3 %; Platelet Count 128 K/uL (130-400); RDW Coefficient of Variation 13.5 % (11.5-14.5); RDW Standard Deviation 50.5 fL (36.4-46.3); White Blood Count 6.16 K/uL (4.8-10.8)
[2021-06-08 07:00] LABS: Albumin Level 1.9 gm/dl (3.4-5.0); Calcium 7.9 mg/dl (8.5-10.1); Creatinine Clr Calc Pharmacy 109.3 ml/min; Est GFR (Non-African American) 100.1 ml/min
[2021-06-08 07:37] LABS: Albumin Globulin Ratio 0.4 (0.9-2); Bilirubin,Total 1.3 mg/dl (0.2-1); Globulin 4.4 gm/dl (2.5-4.0); Total Protein 6.3 gm/dl (6.4-8.2)
--- NOTE | 2021-06-08 11:31 | Surgery Progress Note ---
Date of Service June 08, 2021 Assessment & Plan (1) Gallbladder dilatation: (2) Colitis: (3) Elevated bilirubin: Plan: 56 year-old male presented to ED with complaint of chills, sweats, shortness of breath, cough, nausea, vomiting, and diarrhea. CT scan showing distended gallbladder and ? colitis of cecum and ascending colon. Leukocytosis of 12k and elevated t. bili at 2.5 and elevated AST at 153. Elevated INR at 1.4. Lactic acid wnl 1.5. Labs today show resolution of leukocytosis. T. bili. 1.5. MRCP with no cholelithiasis/choledocholithiasis; no ductal dilatation; morphologic liver features suggestive of cirrhosis Plan: HIDA scan today Will await results of imaging below if there is any indication for cholecystectomy repeat am labs, monitor t.bili and lfts Continue current medical management will follow along Admission and Anticipated Discharge Date Admission Date: June 06, 2021 Subjective still having some upper abdominal pain today. some nausea. no fevers. MRCP done yesterday; distended gallbladder but no stones; no dilation of ducts; no choledocholithiasis Physical Exam Constitutional: WD/WN, vitals as above Neck: trachea midline, no thyromegaly Gastrointestinal (Abdomen): Inspection/Auscultation: abdomen normal to inspection; abdomen not distended and no abdominal edema Percussion/Palpation: + abdomen tender (mild RUQ/epigastric) and abdomen soft; no guarding, abdomen not rigid, no hernia and no abdominal mass Musculoskeletal: Extremities: no cyanosis and no clubbing Skin: no rashes, warm and dry Psychiatric: A+Ox3, euthymic affect Results & Data ([facility]) Vital Signs (Past 12 Hours) Vital Signs Temp Pulse Resp BP Pulse Ox 06/08/21 07:45 36.9 C 70 20 132/76 96 06/08/21 06:16 37 C 06/08/21 03:00 37 C 75 18 123/74 95 Laboratory Results 06/08/21 06/08/21 06/07/21 Range/Units 06:08 06:08 10:41 WBC 6.16 (4.8-10.8) K/uL RBC 3.70 L (4.7-6.1) M/uL Hgb 12.6 L (14.0-18.0) g/dL Hct 37.2 L (42-52) % MCV 100.5 H (80-100) fL MCH 34.1 H (25-34) pg MCHC 33.9 (32-36) g/dL RDW Std Deviation 50.5 H (36.4-46.3) fL RDW Coeff of Gerber 13.5 (11.5-14.5) % Plt Count 128 L (130-400) K/uL MPV 10.3 (7.4-10.4) fL Immature Gran % (Auto) 0.2 % Neut % (Auto) 65.3 % Lymph % (Auto) 16.2 % Isabela % (Auto) 15.9 % Eos % (Auto) 1.9 % Baso % (Auto) 0.5 % Neut # (Auto) 4.02 (1.4-6.5) K/uL Lymph # (Auto) 1.00 L (1.2-3.4) K/uL Isabela # (Auto) 0.98 H (0.11-0.59) K/uL Eos # (Auto) 0.12 (0-0.5) K/uL Baso # (Auto) 0.03 (0-0.2) K/uL Immature Gran # (Auto) 0.01 (0.00-0.02) K/uL Sodium 134 L (136-145) mmol/L Potassium 4.0 (3.5-5.1) mmol/L Chloride 104 (98-107) mmol/L Carbon Dioxide 27 (21-32) mmol/L Anion Gap 4.0 (3-11) BUN 4 L (7-18) mg/dl Creatinine 0.81 (0.6-1.4) mg/dl Est Cr Clr Drug Dosing 109.3 ml/min Est GFR ( Amer) 116.0 ml/min Est GFR (Non-Af Amer) 100.1 ml/min BUN/Creatinine Ratio 5.0 L (10-20) Glucose 93 (70-99) mg/dl Calcium 7.9 L (8.5-10.1) mg/dl Total Bilirubin 1.3 H (0.2-1) mg/dl AST 78 H (15-37) U/L ALT 51 (12-78) U/L Alkaline Phosphatase 75 (45-117) U/L Total Protein 6.3 L (6.4-8.2) gm/dl Albumin 1.9 L (3.4-5.0) gm/dl Globulin 4.4 H (2.5-4.0) gm/dl Albumin/Globulin Ratio 0.4 L (0.9-2) Hep Bs Antigen Neg (Neg) Hepatitis C Antibody Neg (Neg) Diagnostic Findings MRCP CLINICAL HISTORY: Elevated hepatic transaminases. COMPARISON STUDY: Abdominal CT dated 06/06/2021. TECHNIQUE: Abdominal MRCP is performed utilizing various T1- and T2-weighted sequences in the axial and coronal planes. IV contrast was not administered for this examination. 3-D reformats are created and assessed. The examination is compromised by motion artifact. FINDINGS: The gallbladder is distended. No gallstones are identified. No intra- or extrahepatic biliary ductal dilatation is identified. The common bile duct is normal in caliber, measuring up to 4 mm in diameter. No intraluminal filling defects are identified to suggest choledocholithiasis. The pancreatic duct is normal in caliber. The liver is enlarged, heterogeneous, and steatotic, measuring 23.8 cm in length. Nodularity of the surface contour suggests changes of cirrhosis. The spleen is enlarged, measuring 15 cm in length. There is upper abdominal ascites. The unenhanced pancreas, adrenal glands, and kidneys are grossly normal. The abdominal aorta is normal in caliber. No bowel obstruction is seen. Trace pleural effusions are suspected. The bony structures appear intact. IMPRESSION: 1. Distended gallbladder with no gallstones identified. 2. There is no intra- or extrahepatic biliary ductal dilatation, and no choledocholithiasis. 3. The liver is enlarged, heterogeneous, and steatotic. Nodularity of the surface contour suggests morphologic change of cirrhosis. 4. Splenomegaly. 5. There is a small volume of upper abdominal ascites which is new from yesterday.
[2021-06-08] MEDS: ERYTHROMYCIN OP OINT 1 GM PKT OP SCH ×3 (12:18→20:24)
--- NOTE | 2021-06-08 13:34 | Gastroenterology Progress Note ---
Date of Service June 08, 2021 Assessment & Plan (1) Diarrhea: (2) Gallbladder dilatation: (3) Colitis: Plan: Pt is a 56 y/o male admitted w fever, chills, diarrhea. CT w signs of possible gallbladder distension and cecal/colonic wall thickening - though noted he likely has early cirrhosis (fatty appearance w nodularity R lobe, hepatosplenomegaly, thrombocytopenia, coagulopathy). - Will review HIDA results when available - to r/o cholecystitis; Surgery following. - APAP <2g a day if needed - No ETOH - GI f/u upon DC for further liver dz management, oupt colonoscopy Admission and Anticipated Discharge Date Admission Date: June 06, 2021 Supervising Physician Co-Signing Physician Notes Attg add: I interviewed and examined pt, reviewed chart and labs. Pt had brief episode lower abd pain last night, o/w no complaints. WBC unremarkable, VS unremarkable. No clear source of sepsis, and no clinic symptoms of enteritis. HIDA, MRCP negative. OK for d/c from GI standpoint. WIll arrange for outpt cscopy, and Gi clinic f/u for eval for liver disease. Subjective 56 yr old male, prior increased alcohol intake. Admitted on 06/06 for weakness, nausea/vomiting, abdominal pain. Leukocytosis at 18 on arrival with mild LFT elevation. Most recent temp 37.[address] with mild pericoloinc stranding suggestive of cecal and ascending colitis, fatty liver and possible early cirrhosis. Today, pain free. Feels well. Review of Systems Review of Systems: ROS: Gen: + fever last evening. Weakness resolved. Eyes: No eye redness, or pain, no recent vision changes Resp: No SOB, no cough Cardio: No palpitations/irregular beats, no chest pain GI: GI symptoms are resolved. No pain, no nausea/vomiting. : Denies pain on urination Skin: No jaundice, itching or new rashes Physical Exam Constitutional: well developed, + thin and cooperative Eyes: PERRL, conjunctivae normal, anicteric sclerae Respiratory: normal respiratory effort, lungs clear to auscultation normal respiratory effort and able to speak in complete sentences; no respiratory distress, no labored breathing, does not use accessory muscles and no cough Cardiovascular: RRR, no murmur, no edema Gastrointestinal (Abdomen): Inspection/Auscultation: abdomen normal to inspection and normal bowel sounds; abdomen not distended and no abdominal edema Skin: no rashes, warm and dry normal turgor Neurologic: PERRL, EOMI, accommodation nl, no face palsy, no dysarthria awake; not confused Psychiatric: A+Ox3, euthymic affect Orientation: alert, oriented x 3 and cooperative Lymphatic: no cervical or axillary lymphadenopathy Results & Data ([facility]) Vital Signs (Past 12 Hours) Vital Signs Temp Pulse Resp BP Pulse Ox 06/08/21 12:00 36.8 C 76 20 124/73 94 06/08/21 07:45 36.9 C 70 20 132/76 96 06/08/21 06:16 37 C 06/08/21 03:00 37 C 75 18 123/74 95 Laboratory Results WBC 6, Hb 12, Hct 37, Plts 128, Na 134, K 4.0, Cl 104, CO2 27, BUN 41, Cr 0.8, T bili 1.3, AST 78, ALT 81, Alk PHhos 75. Initial blood and urine cx with Klebsiella, repeat (-) Diagnostic Findings MRCP 06/07/21: 1. Distended gallbladder with no gallstones identified. 2. There is no intra- or extrahepatic biliary ductal dilatation, and no choledocholithiasis. 3. The liver is enlarged, heterogeneous, and steatotic. Nodularity of the surface contour suggests morphologic change of cirrhosis. 4. Splenomegaly. 5. There is a small volume of upper abdominal ascites which is new from yesterday. CT 06/06/21: 1. Mild wall thickening with pericolonic stranding involves the cecum and ascending colon suggestive of a nonspecific colitis. 2. No bowel obstruction or pneumoperitoneum. 3. Hepatosplenomegaly with hepatic steatosis. 4. Moderately distended gallbladder without cholelithiasis identified. 5. Prostamegaly with findings suggestive of chronic bladder outlet obstruction.
--- NOTE | 2021-06-08 13:36 | Nuclear Medicine Report ---
NUCLEAR HEPATOBILIARY SCAN CLINICAL HISTORY: Right upper quadrant abdominal pain. COMPARISON STUDY: Abdominal CT dated 06/06/2021. MRCP dated 06/07/2021. TECHNIQUE: Dynamic images of the liver and anterior abdomen were obtained every 5 minutes for a total of 25 minutes following the IV administration of 5.4mCi of technetium 99m Choletec. FINDINGS: The hepatobiliary scan shows prompt and homogeneous hepatic uptake. There is visualized act ivity within the intra and extrahepatic biliary tree at 10 minutes, and within the gallbladder at 15 minutes. There is normal biliary to bowel transit, with small bowel visualized by 15 minutes. IMPRESSION: Unremarkable nuclear hepatobiliary scan. There is no scintigraphic evidence of cholecysti tis. ACT 112: Negative or not required by law. Electronically signed by: Helder Victor M.D. 06/08/2021 1:35 PM
--- NOTE | 2021-06-08 13:41 | Hospitalist Progress Note ---
Date of Service June 08, 2021 Assessment & Plan (1) Sepsis: Plan: Suspect 2/2 Enteritis - Lactate 1.5. - Febrile, tachycardic, mildly hypotensive, with leukocytosis on admission - Leukocytosis normalized 06/06 - CXR: suble L>R bibasilar opacities suggestive of pneumonitis. - CT-Ab: Mild wall thickening with pericolonic stranding involves the cecum and ascending colon suggestive of a nonspecific colitis. No bowel obstruction or pneumoperitoneum. Hepatosplenomegaly with hepatic steatosis. Moderately distended gallbladder without cholelithiasis identified. Prostamegaly with findings suggestive of chronic bladder outlet obstruction. - Diarrhea and pericolonic stranding consistent with enteritis/colitis - Interval gallbladder distension new from 09/2020 with elevated bilirubin and INR, ?underlying gallbladder disease although no stones on CT. GI consulted - Mildly elevated billirubin and INR concerning for liver etiology however no abdominal pain here. - Left conjunctivitis present but no surrounding erythema to suggest preseptal cellulitis - Initially placed on BSABx Vanc/Zosyn. Narrowed to zosyn, BC pending (2) Gallbladder dilatation: Plan: - No murphys sign/RUQ pain - CT-A/P with interval gallbladder distension since 09/2020 with elevated bili (2.5 from prior 1.1) - GI consulted. MRCP shows distended gallbladder with no gallstones identified, no intra or extrahepatic ductal dilation and no choledocholithiasis. Steatotic enlarged liver with nodular cirrhotic morphology. Splenomegaly appreciated. Small volume of upper abdominal ascites appreciated. HIDA pending - Surgery following, pending tests as above (3) Bacterial conjunctivitis of left eye: Plan: Left eye with injected conjunctiva, purulence at the lateral canthus and superior eyelid margin. Pupils equal and reactive to light. Visual acuity comparatively diminished compared to right eye, improves with blinking consistent w/ conjunctivitis. Reportedly on Cipro drops, somewhat inconsistent use per nursing Continue erythromycin ointment Discussed with ophthalmology, patient cloudy vision may also be related to cataract surgery. For conservative treatment of severe conjunctivitis recommended addition of moxifloxacin to erythromycin ointment and follow-up with Ortho as an outpatient. Continue moxifloxacin 1 drop OP 3 times daily x7 days (4) Cirrhosis: Plan: PT as noted No leukocytosis, platelet 128, INR 1.4, AST 78, ALT 51. - Iron 96/TIBC 173/transferrin 117/transferrin saturation 58/ferritin 794.5. ?HH given increased ferritin and saturation, GI consulted. DALTON, AMA, ASMA, ceruloplasmin, A1A, iron profile, hepatitis profile. Appreciate recs MRCP as above, HIDA pending Dose reduced Tylenol if required Avoid alcohol (5) Elevated bilirubin: Plan: - See above (6) Colitis: Plan: VTE Prophylaxis - low risk, SCDs Diet - regular Disposition - admit to med/tele Admission and Anticipated Discharge Date Admission Date: June 06, 2021 Subjective Seen at bedside this morning. Reports he continues to feel like his left eye is irritated and not improving, has slightly worsened. Continues to endorse slightly blurrier vision in the left eye which does not completely clear with bl inking. Minimal itching/pain, but feels "uncomfortable ". Denies fever/chest pain/shortness of breath/difficulty breathing/cough. Denies stomach pain at rest, nausea/vomiting today Review of Systems Review of Systems: Constitutional: See HPI Eyes: See HPI ENT: Denies ear pain, sore throat, sinus pain Cardiovascular: Denies Chest pain, chest pressure, palpitations, extremity swelling Respiratory: Denies shortness of breath, cough, sputum production, difficulty breathing Gastrointestinal: See HPI Genitourinary: Denies dysuria, urinary frequency Musculoskeletal: Denies acute focal weakness, muscle aches/pain, joint aches/pain Integumentary:Denies acute rash, lesions, bruising Neurological: Denies headache, numbness, tingling, focal weakness Physical Exam Physical Exam: General: A&Ox3. NAD. Cooperative. HEENT: Left eye with injected conjunctiva, purulence at the lateral canthus and superior eyelid margin. Pupils equal and reactive to light. Visual acuity comparatively diminished compared to right eye, diminished even when blinking today. Pulm: CTAB A&P. -wheezes, -rales, -rhonchi. Symmetrical chest rise. No increase work of breathing. No respiratory distress. Cardiac: RRR, -mrg. Radial pulses intact and symmetrical. Abdominal: Nontender, nondistended, soft. BS present. No Watson sign. SENSORY: Normal to touch in upper and lower extremities without deficit or asymmetry Results & Data Results & Data ([facility]) Vital Signs (Past 12 Hours) Vital Signs Temp Pulse Resp BP Pulse Ox 06/08/21 12:00 36.8 C 76 20 124/73 94 06/08/21 07:45 36.9 C 70 20 132/76 96 06/08/21 06:16 37 C 06/08/21 03:00 37 C 75 18 123/74 95 PG Care Time/CCT Total # of Minutes Spent Total Time Spent with Patient: Total time spent is greater than 50% in coordination of care (as documented) at patient's floor/unit and/or counseling patient: Coding Level of Care Code 05335 Subseq Hosp Care Lv 3 Diagnoses Sepsis A41.9 Sepsis acute organ dysfunction status: unspecified Sepsis type: sepsis due to unspecified organism Gallbladder dilatation K82.8 Bacterial conjunctivitis of left eye H10.9 Elevated bilirubin R17 Colitis K52.9 Cirrhosis K74.60 (1) Sepsis Sepsis acute organ dysfunction status: unspecified Sepsis type: sepsis due to unspecified organism Qualified Code(s): A41.9 - Sepsis, unspecified organism
[2021-06-08] MEDS: MOXIFLOXACIN HCL 0.5% OP SOLN 3 ML BTL OP SCH ×2 (16:15→20:23)
[2021-06-09 07:59] LABS: Basophils # (auto) 0.02 K/uL (0-0.2); Basophils % (auto) 0.3 %; Eosinophils # (auto) 0.17 K/uL (0-0.5); Eosinophils % (auto) 2.8 %; Hematocrit (blood only) 37.9 % (42-52); Hemoglobin 12.9 g/dL (14.0-18.0); Immature Granulocytes # (auto) 0.01 K/uL (0.00-0.02); Immature Granulocytes % (auto) 0.2 %; Lymphocytes # (auto) 1.14 K/uL (1.2-3.4); Lymphocytes % (auto) 18.8 %; Mean Corpuscular Hemoglobin 33.9 pg (25-34); Mean Corpuscular Volume 99.7 fL (80-100); Mean Platelet Volume 10.7 fL (7.4-10.4); Monocytes # (auto) 0.73 K/uL (0.11-0.59); Neutrophils % (auto) 65.9 %; Platelet Count 141 K/uL (130-400); RDW Coefficient of Variation 13.4 % (11.5-14.5); White Blood Count 6.07 K/uL (4.8-10.8)
[2021-06-09 08:28] LABS: Albumin Level 1.9 gm/dl (3.4-5.0); Calcium 8.1 mg/dl (8.5-10.1); Creatinine Clr Calc Pharmacy 110.7 ml/min; Est GFR (African American) 116.6 ml/min; Est GFR (Non-African American) 100.6 ml/min; Potassium 4.3 mmol/L (3.5-5.1)
[2021-06-09 08:31] LABS: Albumin Globulin Ratio 0.4 (0.9-2); Bilirubin,Total 1.4 mg/dl (0.2-1); Globulin 4.5 gm/dl (2.5-4.0); Total Protein 6.4 gm/dl (6.4-8.2)
[2021-06-09] MEDS: ERYTHROMYCIN OP OINT 1 GM PKT OP SCH (10:58)
[2021-06-09] MEDS: MOXIFLOXACIN HCL 0.5% OP SOLN 3 ML BTL OP SCH (10:58)
[2021-06-09] MEDS ORDERED: PIPERACILLIN/TAZOBACTAM 3.375 GM in DEXTROSE 5% 100 ML IV SCH (11:00)
[2021-06-09] MEDS ORDERED: ERYTHROMYCIN OP OINT 5 MG/GM 3.5 GM TUBE OP SCH (13:00)
--- NOTE | 2021-06-09 13:14 | Discharge Summary ---
Date of Service June 09, 2021 Admission HPI Per Admitting Provider Jasper Restrepo is a 56 year old male with prior alcohol use disorder who presents to the ER with diaphoresis, shortness of breath, nausea, vomiting, chest pain and diarrhea. He reports feeling generally well this morning. However after going out in the rain earlier today he went home and started having chills. He felt similar to when he had UTI Klebsiella sepsis in 2019 therefore decided to come to the ER for further workup. He denies any abdominal pain, dysuria, flank pain, change in urine frequency, smell or color. He does endorse a mild non- productive cough, no loss of taste or smell, nasal congestion or sinus pain. He reports he stopped drinking 3 weeks prior. In the ER blood cultures were taken and he was started empirically on ceftriaxone but with no definitive source of infection. He was referred to [facility] for admission and ongoing management of sepsis. Admission Exam Per Admitting Provider Constitutional: well developed; + not well nourished and no acute distress Respiratory: normal respiratory effort, lungs clear to auscultation Cardiovascular: Rate/Rhythm: regular rhythm and + tachycardic Heart Sounds: no murmur Extremities: normal capillary refill; no calf tenderness and no pedal edema Gastrointestinal (Abdomen): Inspection/Auscultation: + abdomen distended and normal bowel sounds Percussion/Palpation: abdomen soft; abdomen nontender, no guarding and abdomen not rigid Musculoskeletal: no cyanosis or clubbing, extremities motor strength 5/5 Skin: + subcutaneous nodules (multiple on back without fluctulence or significant surrounding erythema) No areas of cellulitis Neurologic: moves all extremities and awake; no focal motor deficits and not confused Motor/Sensory: no tremor and no pronator drift Psychiatric: A+Ox3, euthymic affect Principal Diagnosis Enteritis/colitis Bacterial conjunctivitis of the left eye Gallbladder distention without acute cholecystitis/cholelithiasis Discharge Exam General: A&Ox3. NAD. Cooperative. HEENT: Left eye with injected conjunctiva, purulence at the lateral canthus and superior eyelid margin. Pupils equal and reactive to light. Visual acuity comparatively diminished compared to right eye, persists with blinking. Erythema and swelling qualitatively improved today, patient reports is easier to keep eye open today. Pulm: CTAB A&P. -wheezes, -rales, -rhonchi. Symmetrical chest rise. No increase work of breathing. No respiratory distress. Cardiac: RRR, -mrg. Radial pulses intact and symmetrical. Abdominal: Nontender, nondistended, soft. BS present. No Watson sign. SENSORY: Normal to touch in upper and lower extremities without deficit or asymmetry Discharge Data Allergies Allergy/AdvReac Type Severity Reaction Status Date / Time No Known Allergies Allergy Verified 06/06/21 17:41 Consultations 06/06/21 17:21 ED Decision to Admit Stat 06/07/21 08:01 Consult Gastroenterology Routine 06/07/21 11:33 Consult General Surgery Routine Ordered Studies 06/06/21 17:32 CT abd pelvis IV con only Stat 06/07/21 10:21 MR MRCP Routine NUCLEAR HEPATOBILIARY SCAN CLINICAL HISTORY: Right upper quadrant abdominal pain. COMPARISON STUDY: Abdominal CT dated 06/06/2021. MRCP dated 06/07/2021. TECHNIQUE: Dynamic images of the liver and anterior abdomen were obtained every 5 minutes for a total of 25 minutes following the IV administration of 5.4mCi of technetium 99m Choletec. FINDINGS: The hepatobiliary scan shows prompt and homogeneous hepatic uptake. There is visualized activity within the intra and extrahepatic biliary tree at 10 minutes, and within the gallbladder at 15 minutes. There is normal biliary to bowel transit, with small bowel visualized by 15 minutes. IMPRESSION: Unremarkable nuclear hepatobiliary scan. There is no scintigraphic evidence of cholecystitis. ACT 112: Negative or not required by law. MRCP CLINICAL HISTORY: Elevated hepatic transaminases. COMPARISON STUDY: Abdominal CT dated 06/06/2021. TECHNIQUE: Abdominal MRCP is performed utilizing various T1- and T2-weighted sequences in the axial and coronal planes. IV contrast was not administered for this examination. 3-D reformats are created and assessed. The examination is compromised by motion artifact. FINDINGS: The gallbladder is distended. No gallstones are identified. No intra- or extrahepatic biliary ductal dilatation is identified. The common bile duct is normal in caliber, measuring up to 4 mm in diameter. No intraluminal filling defects are identified to suggest choledocholithiasis. The pancreatic duct is normal in caliber. The liver is enlarged, heterogeneous, and steatotic, measuring 23.8 cm in length. Nodularity of the surface contour suggests changes of cirrhosis. The spleen is enlarged, measuring 15 cm in length. There is upper abdominal ascites. The unenhanced pancreas, adrenal glands, and kidneys are grossly normal. The abdominal aorta is normal in caliber. No bowel obstruction is seen. Trace pleural effusions are suspected. The bony structures appear intact. IMPRESSION: 1. Distended gallbladder with no gallstones identified. 2. There is no intra- or extrahepatic biliary ductal dilatation, and no choledocholithiasis. 3. The liver is enlarged, heterogeneous, and steatotic. Nodularity of the surface contour suggests morphologic change of cirrhosis. 4. Splenomegaly. 5. There is a small volume of upper abdominal ascites which is new from yesterday. Dictated: 06/07/2021 7:10 PM Transcribed: 06/07/2021 7:24 PM [id number] [facility] ABDOMEN AND PELVIS CT WITH IV CONTRAST CT DOSE: 296.68 mGy.cm HISTORY: Acute sepsis with diarrhea sepsis, diarrhea, elevated mariana, ?ascites ?coliti TECHNIQUE: Multiaxial CT images of the abdomen and pelvis were performed following the IV administration of Optiray, A dose lowering technique was utilized adhering to the principles of ALARA. COMPARISON STUDY: CT abdomen and pelvis 09/13/2020 FINDINGS: Clear lung bases. No pneumatosis or pneumoperitoneum. The imaged inferior cardiac chambers are unremarkable. The spleen is enlarged measuring up to 15 cm. The liver is enlarged measuring up to approximately 19 cm at the mid clavicular line. Heterogeneity of the liver with geographic hepatic steatosis. Recanalized umbilical vein. Mild marginal nodularity of the inferior right hepatic lobe redemonstrated. No discrete hepatic mass identified. Patency of the portal vein. Moderately distended gallbladder. No shadowing cholelithiasis or gallbladder wall thickening identified. Unremarkable pancreas and adrenal glands. The kidneys are within normal limits. No hydronephrosis. Prostamegaly with mild urinary bladder wall thickening. No abdominal aortic aneurysm or adenopathy. Unremarkable IVC. No bowel obstruction or small bowel wall thickening. Scattered small bowel air- fluid levels of the lower abdomen and pelvis. There is mild wall thickening of the cecum and ascending colon with pericolonic stranding. Nondilated appendix. Unremarkable soft tissues. No acute fracture. Degenerative changes of the spine, pelvis and hips. IMPRESSION: 1. Mild wall thickening with pericolonic stranding involves the cecum and ascending colon suggestive of a nonspecific colitis. 2. No bowel obstruction or pneumoperitoneum. 3. Hepatosplenomegaly with hepatic steatosis. 4. Moderately distended gallbladder without cholelithiasis identified. 5. Prostamegaly with findings suggestive of chronic bladder outlet obstruction. ACT 112: Negative or not required by law. The above report was generated using voice recognition software. It may contain grammatical, syntax or spelling errors. Electronically signed by: Abebe Schafer M.D. 06/06/2021 7:04 PM Dictated: 06/06/211852Transcribed: 06/06/211852 Hospital Course (1) Sepsis: Jasper a 56-year-old male who was admitted for sepsis likely due to resolved colitis and who was found to have multiple medical issues requiring follow-up as noted below, including left eye conjunctivitis with vision change, gallbladder distention, liver nodularity and cirrhotic change, and enlarged prostate with intermittent lower urinary tract symptoms. Critical To Do As Outpatient, Discussed with Patient at Discharge 1. Follow-up with ophthalmology within 1 week for left eye bacterial conjunctivitis with affected vision. Patient discharged on erythromycin/moxifloxacin. Discussed with [facility] during admission. 2. Follow-up with gastroenterology for follow-up of gallbladder distention without acute signs for cholecystectomy, and for liver cirrhosis send out tests (pending at ct) with acute hepatitis panel, and hereditary hemochromatosis DNA test (elevated TSAT/Ferritin during admit) with evaluation for further testing as indicated. 3. Follow-up with urology for prostate enlargement with intermittent LUTS 4. Routine PCP follow-up Sepsis due to colitis, improved - Febrile, tachycardic, mildly hypotensive, with leukocytosis on admission lactate 1.5. - Leukocytosis normalized 06/06 - CXR: suble L>R bibasilar opacities suggestive of pneumonitis. - CT-Ab: Mild wall thickening with pericolonic stranding involves the cecum and ascending colon suggestive of a nonspecific colitis. No bowel obstruction or pneumoperitoneum. Hepatosplenomegaly with hepatic steatosis. Moderately distended gallbladder without cholelithiasis identified. Prostamegaly with findings suggestive of chronic bladder outlet obstruction. - Diarrhea and pericolonic stranding consistent with enteritis/colitis - Interval gallbladder distension new from 09/2020 with elevated bilirubin and INR, ?underlying gallbladder disease although no stones on CT. GI consulted - Mildly elevated billirubin and INR concerning for liver etiology as discussed below - Left conjunctivitis present but no surrounding erythema to suggest preseptal cellulitis - Initially placed on BSABx Vanc/Zosyn. Narrowed to zosyn, BC remained negative. - Abx d/vijaya, pt remained clinically well with resolution of leukocytosis. Suspect 2/2 colitis/enteritis likely viral (2) Gallbladder dilatation: - No murphys sign/RUQ pain - CT-A/P with interval gallbladder distension since 09/2020 with elevated bili (2.5 from prior 1.1) - GI consulted. MRCP shows distended gallbladder with no gallstones identified, no intra or extrahepatic ductal dilation and no choledocholithiasis. Steatotic enlarged liver with nodular cirrhotic morphology. Splenomegaly appreciated. Small volume of upper abdominal ascites appreciated. HIDA without gallbladder dysfunction. Per surgery no indication for cholecystectomy at this time - GI followup as outpt (3) Bacterial conjunctivitis of left eye: Left eye with injected conjunctiva, purulence at the lateral canthus and superior eyelid margin. Pupils equal and reactive to light. Visual acuity comparatively diminished compared to right eye, improves with blinking consistent w/ conjunctivitis. Reportedly on Cipro drops, somewhat inconsistent use per nursing Switched to erythromycin. Continue erythromycin ointment x7 days Discussed with ophthalmology, patient cloudy vision may also be related to cataract surgery. For conservative treatment of severe conjunctivitis recommended addition of moxifloxacin to erythromycin ointment and follow-up with Ortho as an outpatient. Continue moxifloxacin 1 drop OP 3 times daily x7 days (4) Cirrhosis: PT as noted No leukocytosis, platelet 128, INR 1.4, AST 78, ALT 51. - Iron 96/TIBC 173/transferrin 117/transferrin saturation 58/ferritin 794.5. - ?HH given increased ferritin and saturation, DNA sent, pending at ct GI consulted. DALTON, AMA, ASMA, ceruloplasmin, A1A, iron profile, hepatitis profile. MRCP as above, HIDA as noted Dose reduced Tylenol if required Avoid alcohol Pt will f.u with GI for additional eval/management. Acute hepatitis panel pending with DNA as noted above. (5) Elevated bilirubin: - See above (6) Colitis: - improved, tx as noted in sepsis above (7) Enlarged prostate: Enlarged prostate noted on CT as above Patient reports intermittent difficulty voiding/emptying bladder completely Peeing okay at time of discharge Denies personal or family history of prostate cancer Patient reports was originally to be evaluated for this as outpatient, but [facility] Referred to urology on outpatient for outpatient management VTE Prophylaxis - low risk, SCDs. No signs of DVT during admission Total Time Total Time Spent Total Time Spent (In Minutes): Total time spent preparing discharge on day of discharge including direct patient care, review of labs and images, documentation, and coordination of care approximately 45 minutes. Discharge Plan Discharge Items Patient Disposition: Home - Self-Care Reason For Visit: SEPSIS, COLITIS Discharge Diagnosis: Colitis/enteritis Bacterial conjunctivitis of the left eye Gallbladder distention Activity: Resume your previous activity Non-emergency contact: Primary Care Provider Call non-emergency contact if: you have any medication questions, your symptoms worsen, your pain is not controlled, your pain is worsening, your pain is unusual for you, your pain is concerning for you and you have a fever Follow-up/Referrals: Rocky Santiago MD [Physician] - Alen Mae MD [Physician] - Medhat Arroyo MD [Surgeon] - PCP,JOSÉ MIGUEL [Primary Care Provider] - Diet: Regular Addtl Attending Provider Instructions: You are seen in the hospital for an acute illness, your imaging showed evidence of colitis (GI bug) which was improving by time of discharge. You were noted to have a distended gallbladder during admission, follow-up testing showed that while your gallbladder was slightly distended there were no signs of stones or dysfunctional pumping. It was not recommended to follow-up with surgery at this time. Your liver was noted to have nodularity and findings of cirrhosis, your iron levels were also high which can affect the liver. You have had further t esting and follow-up with gastroenterology as noted below. You were also noted to have a slightly enlarged prostate which may contribute to difficulty with urination and should be followed up. A follow-up appointment with urology is being scheduled as below. You have been prescribed an antibiotic, erythromycin ointment. Please apply erythromycin ointment to your left eye 4 times daily. You have been prescribed an antibiotic drop, moxifloxacin. Please apply moxifloxacin to your left eye 3 times daily Your left eye was noted to have inflammation and discharge consistent with bacterial conjunctivitis which had not improved on Cipro drops. This was discussed with time her eye care during admission, was recommended that you switch to erythromycin ointment and moxifloxacin drops which have been prescribed as noted below. You should have follow-up with primary care within 1 week. An appointment is being scheduled for you, if you do not receive a call to confirm this appointment please call their office directly at .You should be seen in less than 1 week. A follow-up appointment is being made with gastroenterology. This appointment will follow up on your gallbladder, your liver, and your remaining liver tests including send out serologies and send out hemochromatosis (iron overload) testing which will take several days to get results. You should hear within 48 hours regarding an appointment, you should be seen in approximately 1 week. If you do not receive a call to confirm your appointment please call their office at [phone]. You are noted to have an enlarged prostate which can contribute to difficulty urinating. This can be caused by benign prostate hyperplasia, and age-related enlargement of the prostate, or prostate cancer. You have had a referral placed to follow-up with urology. You should be seen within 1 month, if you do not hear regarding an appointment please call their office at [phone]. [facility] in the [facility]. Please make an appointment with a primary care provider to be seen for follow-up within 1 month. If you develop any new or worsening symptoms including fever, chills, sweats, chest pain, chest pressure, difficulty breathing, uncontrolled nausea/vomiting, rash, wheezing, passing out or nearly passing out, bleeding, black/bloody bowel movements, Worsening of your vision, worsening eye pain,or other new or concerning symptoms please call the [facility], or call [phone] for re-evaluation in the emergency department if you are very concerned. Pending Studies at Discharge: Yes (Cirrhosis panel, Hemochromatosis evaluation) Stand-Alone Forms: [employer], Smoking Cessation Medications and DC Order Prescriptions: New erythromycin 5 mg/gram (0.5 %) Ointment 1 applic ophthalmic (eye) QID 7 Days Qty: 3.5 RF: 0 moxifloxacin [Vigamox] 0.5 % Drops 1 drp ophthalmic (eye) TID 7 Days Qty: 3 RF: 0 Discontinued ciprofloxacin HCl [Ciloxan] 0.3 % drops 2 drp OPB Q4H 7 Days Qty: 5 RF: 0 Discharge Orders: Discharge Order (Routine); Ordered 06/09/21 Ordered By: Jadiel Beth Admission Data Admit Date/Time: 06/06/21 19:15 Attending Provider: Jadiel Beth Admit Provider: Juan Garcia Primary Care Provider: PCP,NO Other Providers: Juan Garcia ; [facility] ; [facility] ; Seamus Nunez ; Demetrius Mercer ; Mayelin Rhoades ; Catie Centeno ; Dell Santacruz ; Sher Pringle ; Margaret Bahena ; Jessica Rene ; Theo Urias Jr ; Max Villarreal ; Lyndon Serrano ; Alesia Julio Other Interventions: Discharge Summary Assessment (RN) Last Done: 06/09/21 11:44 Coding Level of Care Code D/C DAY MANAGEMENT >30 MINS Diagnoses Sepsis A41.9 Sepsis acute organ dysfunction status: unspecified Sepsis type: sepsis due to unspecified organism Gallbladder dilatation K82.8 Bacterial conjunctivitis of left eye H10.9 Cirrhosis K74.60 Elevated bilirubin R17 Colitis K52.9 Enlarged prostate N40.0
[2021-06-09 14:16] LABS: Alpha 1 Antitrypsin 165 mg/dL (83-199); Anti Mitochondrial Antibody NEGATIVE (NEGATIVE); Anti Nuclear Antibody Screen NEGATIVE (NEGATIVE); Ceruloplasmin 22 mg/dL (18-36); Hepatitis A Antibody IgM NON-REACTIVE (NON-REACTIVE); Hepatitis B Core Antibody IgM NON-REACTIVE (NON-REACTIVE); Smooth Muscle Antibody POSITIVE (NEGATIVE)
[2021-06-12 14:04] LABS: Smooth Muscle Ab Titer 1:20 titer (<1:20)
== END 2021-06-09 14:33 | disposition home or self-care (01) | DRG 871 ==
LOC: ED 14:39 → 2N 19:15 → SUATTDRO 19:15 → 2N 21:35
DX: Z87.891 Personal history of nicotine dependence; F43.10 Post-traumatic stress disorder, unspecified; R18.8 Other ascites; J18.9 Pneumonia, unspecified organism; K74.60 Unspecified cirrhosis of liver; K52.9 Noninfective gastroenteritis and colitis, unspecified; Z86.73 Personal history of transient ischemic attack (TIA), and cerebral infarction without residual deficits; N40.0 Benign prostatic hyperplasia without lower urinary tract symptoms; K82.8 Other specified diseases of gallbladder; B96.89 Other specified bacterial agents as the cause of diseases classified elsewhere; K76.6 Portal hypertension; R39.9 Unspecified symptoms and signs involving the genitourinary system; H53.9 Unspecified visual disturbance; H10.89 Other conjunctivitis; A41.9 Sepsis, unspecified organism

== ENCOUNTER 2021-08-13 17:13 | Inpatient (IN) ==
[2021-08-13 18:08] LABS: Hematocrit (blood only) 37.6 % (42-52); Hemoglobin 12.9 g/dL (14.0-18.0); Mean Corpuscular Hemoglobin 34.9 pg (25-34); Mean Corpuscular Hgb Conc 34.3 g/dL (32-36); Mean Corpuscular Volume 101.6 fL (80-100); RDW Standard Deviation 52.4 fL (36.4-46.3); White Blood Count 6.44 K/uL (4.8-10.8)
[2021-08-13 18:13] LABS: Basophils # (auto) 0.03 K/uL (0-0.2); Basophils % (auto) 0.5 %; Eosinophils # (auto) 0.06 K/uL (0-0.5); Eosinophils % (auto) 0.9 %; Immature Granulocytes # (auto) 0.01 K/uL (0.00-0.02); Immature Granulocytes % (auto) 0.2 %; Lymphocytes # (auto) 0.86 K/uL (1.2-3.4); Lymphocytes % (auto) 13.4 %; Monocytes # (auto) 0.66 K/uL (0.11-0.59); Monocytes % (auto) 10.2 %; Neutrophils # (auto) 4.82 K/uL (1.4-6.5); Neutrophils % (auto) 74.8 %; Platelet Count 76 K/uL (130-400)
[2021-08-13 18:29] LABS: Alanine Aminotransferase 84 (12-78); Albumin Level 2.2 gm/dl (3.4-5.0); Aspartate Aminotransferase 225 U/L (15-37); BUN Creatinine Ratio 3.9 (10-20); Blood Urea Nitrogen 3 mg/dl (7-18); Calcium 8.1 mg/dl (8.5-10.1); Carbon Dioxide 26 mmol/L (21-32); Chloride 100 mmol/L (98-107); Est GFR (African American) 127.8 ml/min; Est GFR (Non-African American) 110.2 ml/min; Glucose 96 mg/dl (70-99); Lipase 167 U/L (73-393); Potassium 4.2 mmol/L (3.5-5.1); Sodium 133 mmol/L (136-145)
[2021-08-13 18:31] LABS: Albumin Globulin Ratio 0.4 (0.9-2); Alkaline Phosphatase 112 U/L (45-117); Bilirubin,Total 2.4 mg/dl (0.2-1); Globulin 5.4 gm/dl (2.5-4.0); Total Protein 7.6 gm/dl (6.4-8.2)
[2021-08-13] MEDS ORDERED: SODIUM CHLORIDE 0.9% 1000ML 500 ML IV ONE (19:36)
[2021-08-13] MEDS ORDERED: ONDANSETRON INJ 2 MG/ML 2 ML VIAL IV STA (19:36)
[2021-08-13] MEDS ORDERED: MoRPHine SULFATE 4 MG/ML 1 ML CARP\\VIAL IV STA (19:36)
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
--- NOTE | 2021-08-13 20:01 | XRay Report ---
XR chest 1V portable HISTORY: Shortness of breath. Cough. COMPARISON: Chest 05/29/2021. FINDINGS: No pneumothorax. Suspect trace bilateral pleural effusions. The heart is normal in size. Th ere are patchy bibasilar airspace opacities. No evidence for pulmonary edema. IMPRESSION: Trace bilateral pleural effusions with patchy bibasilar airspace opacities. This could represent atel ectasis or pneumonia. This will be better assessed on the same day abdomen and pelvis CT. ACT 112: Negative or not required by law. Electronically signed by: Bruce Salgado M.D. 08/13/2021 8:00 PM
[2021-08-13] MEDS ORDERED: OPTIRAY 320 100ml IV ONE (20:35)
[2021-08-13 20:42] LABS: INR 1.4 (0.9-1.1); Partial Thromboplastin Ratio 1.2; Partial Thromboplastin Time 32.5 Seconds (21.0-31.0); Prothrombin Time 13.5 Seconds (9.0-12.0)
[2021-08-13 20:48] LABS: Influenza A virus by PCR Negative (Neg); Influenza B virus by PCR Negative (Neg); RSV by PCR Negative (Neg)
[2021-08-13] MEDS ORDERED: FUROSEMIDE INJ 20 MG/2 ML VIAL IV STA (22:29)
[2021-08-13 22:38] LABS: Appearance Urine Cloudy (Clear); Bacteria Urine Automated Negative (Negative); Bilirubin Urine Negative (Negative); Blood Urine Trace (Negative); Cast Urine Automated 0 /lpf (0-5); Color Urine Dark Yellow; Epithelial Cell Urine Auto 20-30 /lpf (0-5); Glucose Urine UA Negative (Negative); Ketones Urine Negative (Negative); Leukocyte Esterase Urine 2+ (Negative); Nitrite Urine Negative (Negative); Protein Urine Negative (Negative); RBC Urine Automated 0-4 /hpf (0-4); Specific Gravity Urine > 1.045 (1.000-1.030); Urobilinogen Urine Negative (Negative); WBC Urine Automated >30 /hpf (0-5); pH Urine 5.5 (4.5-7.5)
[2021-08-14] MEDS ORDERED: ARTIFICIAL TEARS OP PRN (04:13)
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
--- NOTE | 2021-08-14 07:16 | CT Scan Report ---
CT abd pelvis IV con only CLINICAL HISTORY: abd pain, distention, diarrhea COMPARISON STUDY: 06/06/2021 CT DOSE: 454.01 mGy.cm TECHNIQUE: Standard CT of the Abdomen and Pelvis was performed with IV contrast. A dose lowering oscar hnique was utilized adhering to the principles of ALARA. Contrast Volume: Isovue 320, 95 ml. The patient did not receive oral contrast. FINDINGS: Lung base: The lung bases are clear. Abdominal cavity: Compared to previous examination, there has been interval development of moderate t o marked abdominal and pelvic ascites. Liver: There is heterogeneous attenuation of the liver parenchyma with nodularity of the liver margin most characteristic of hepatocellular disease and possible cirrhosis. There is no evidence for enhan cing mass lesion. Spleen: There is homogeneous attenuation of the splenic parenchyma. There is no enhancing mass lesion . There is mild splenomegaly and splenic hilar varices. Pancreas: There is homogeneous attenuation of the pancreatic parenchyma. There is no evidence for mas s lesion or peripancreatic fluid collection. Gall Bladder: There is again marked distention of the gallbladder with no definite evidence for wall thickening or cholelithiasis. Adrenal glands: The adrenal glands are normal in size and attenuation. There is no evidence for enhan cing mass lesion. Kidneys: There is homogeneous attenuation of the renal parenchyma bilaterally. There is no evidence f or renal calculus or hydronephrosis. There is no evidence for enhancing mass. Bowel: The bowel loops are centrally displaced related to the patient's ascites. There are fluid-fill ed loops of small bowel present without evidence for disproportionate dilatation or obstruction. Find ings are most characteristic of an ileus versus gastroenteritis. There is no evidence for mass lesion . There are no inflammatory changes present. There is no evidence for free air. Bladder: The bladder is grossly distended with mild diffuse thickening of the bladder wall which can be seen with chronic bladder outlet obstruction. : There is no evidence for pelvic mass or adenopathy. There is no evidence for pelvic ascites. Ther e is mild prostate enlargement. Vasculature: There is no evidence for aneurysmal dilatation of the abdominal aorta. Osseous structures: There is no acute osseous pathology. Degenerative changes are seen within the spi ne. IMPRESSION: 1. Interval development of moderate to marked abdominal and pelvic ascites. 2. Evidence for cirrhosis of the liver, mild splenomegaly and varices. 3. Mild ileus versus gastroenteritis. No bowel obstruction. 4. Marked distention of the gallbladder is again seen. 5. Marked distention urinary bladder is also present. 6. Additional nonacute findings are delineated above. ACT 112: Negative or not required by law. Electronically signed by: Cordell Wilkerson M.D. 08/14/2021 7:15 AM
[2021-08-14] MEDS ORDERED: KETOROLAC TROMETHAMINE 15 MG/ML VIAL IV ONE (07:47)
--- NOTE | 2021-08-14 08:00 | Ultrasound Report ---
US duplex portal hepatic veins CLINICAL HISTORY: Large volume ascites TECHNIQUE: Grayscale, color and spectral waveform Doppler examination of the abdomen was performed. Comparison: CT of the abdomen and pelvis from 08/13/2021 FINDINGS: There is moderate to marked abdominal ascites. The study is limited by overlying bowel gas. The hepatic veins, portal veins, IVC and splenic vein are patent with no thrombus identified. Flow is in the hepatopedal direction. Peak systolic velocity in the main portal vein measures 15 cm/sec. Pea k systolic velocity in the hepatic artery is 285 cm/s. The splenic vein in the hilum is patent with f low in the appropriate direction. The remainder the splenic vein cannot be imaged. IMPRESSION: Limited examination due to overlying bowel gas with no evidence for portal vein thrombosis. ACT 112: Negative or not required by law. Electronically signed by: Cordell Wilkerson M.D. 08/14/2021 7:59 AM
[2021-08-14] MEDS: ERYTHROMYCIN OP OINT 5 MG/GM 3.5 GM TUBE OP SCH ×4 (09:22→20:27)
--- NOTE | 2021-08-14 09:23 | Nuclear Medicine Report ---
NUCLEAR MEDICINE HEPATOBILIARY SCAN CLINICAL HISTORY: Right upper quadrant pain. Elevated liver function tests. COMPARISON: Abdominal ultrasound June 27, 2021. Hepatobiliary scan June 08, 2021. CT of the abdomen and pelvis August 13, 2021. TECHNIQUE: 5.5 mCi of technetium 99m Choletec IV was injected at 8:00 AM on August 14, 2021. Immed iately following injection, imaging of the abdomen was carried out for 60 minutes in the anterior pro jection. FINDINGS: Hepatic uptake of radiotracer is prompt and homogeneous. Activity is identified within the gallbladder, common bile duct and small bowel at 15 minutes. IMPRESSION: No scintigraphic evidence for acute cholecystitis. ACT 112: Negative or not required by law. Electronically signed by: Don Callahan M.D. 08/14/2021 9:22 AM
[2021-08-14 09:57] LABS: Mean Corpuscular Hgb Conc 33.9 g/dL (32-36)
[2021-08-14 09:58] LABS: Mean Platelet Volume 9.7 fL (7.4-10.4); Platelet Count 65 K/uL (130-400)
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
[2021-08-14 10:31] LABS: Albumin Level 1.9 gm/dl (3.4-5.0); BUN Creatinine Ratio 5.9 (10-20); Basophils # (auto) 0.02 K/uL (0-0.2); Basophils % (auto) 0.4 %; Calcium 7.9 mg/dl (8.5-10.1); Creatinine Clr Calc Pharmacy 168.4 ml/min; Echinocytes 1+; Eosinophils # (auto) 0.07 K/uL (0-0.5); Eosinophils % (auto) 1.4 %; Est GFR (Non-African American) 116.4 ml/min; Hematocrit (blood only) 34.8 % (42-52); Hemoglobin 11.8 g/dL (14.0-18.0); Immature Granulocytes # (auto) 0.01 K/uL (0.00-0.02); Immature Granulocytes % (auto) 0.2 %; Lymphocytes # (auto) 0.83 K/uL (1.2-3.4); Lymphocytes % (auto) 16.3 %; Mean Corpuscular Hemoglobin 34.6 pg (25-34); Mean Corpuscular Volume 102.1 fL (80-100); Monocytes # (auto) 0.61 K/uL (0.11-0.59); Neutrophils # (auto) 3.56 K/uL (1.4-6.5); Neutrophils % (auto) 69.7 %; Potassium 3.9 mmol/L (3.5-5.1); RDW Coefficient of Variation 14.3 % (11.5-14.5); RDW Standard Deviation 53.4 fL (36.4-46.3); Red Blood Count 3.41 M/uL (4.7-6.1)
[2021-08-14 10:39] LABS: Bilirubin Direct 1.4 mg/dl (0-0.2); Total Protein 6.8 gm/dl (6.4-8.2)
--- NOTE | 2021-08-14 13:21 | Hospitalist Progress Note ---
Date of Service August 14, 2021 Assessment & Plan (1) Abdominal ascites: Plan: 56yo male presenting with increased abdominal girth, ascites. Patient with history of Etoh use disorder, was drinking non-alcoholic beer until recently. Recent hospitalization with imaging suggestive of cirrhosis - patient does not follow with GI for this issue yet - states he does have a screening endoscopy scheduled for sometime next month. Prior hospital stay patient had labs tracy ggestive of cirrhosis. GI consult appreciated. Paracentesis is scheduled. Denies melena/hematochezia, hematemesis. H/H is stable Afebrile. Ascites present. Abdominal tenderness in lower abdomen as well as RUQ Anti-smooth muscle antibody present raising concern for Autoimmune Hepatitis GI consultation appreciated. (2) Cirrhosis: Plan: Most likely due to alcohol induced cirrhosis. Autoimmune hepatitis/cirrhosis is also a possibility. 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 Appreciate gastroenterology consultation and recommendations. Avoid hepatotoxic agents (3) Bacterial conjunctivitis of left eye: Plan: actually ophthalmitis. Not a new dx. Patient has significant clouding of left eye, some drainage. States that he has lost all vision in his left eye - can occasionally see shadows. -Continue home meds. Outpatient follow-up with ophthalmology (4) Gallbladder dilatation: Plan: Noted on previous hospitalization as well. Patient had extensive workup, surgical consultation as well. He is having RUQ discomfort on exam - negative Watson's sign. -GI consult appreciated -Monitor clinically Plan: Ppx - SCDs to bilateral LE Code - Full per discussion with patient Dispo -to be determined Admission and Anticipated Discharge Date Admission Date: August 13, 2021 Subjective Gastroenterology entry noted. Paracentesis is scheduled. He is now on diuretic therapy. Will monitor daily lab studies. Review of Systems Review of Systems: Constitutional-no fever or chills ENT-no blurred vision, no double vision, no epistaxis, no sore throat Respiratory-no cough, no wheezing, no shortness of breath Cardiac-no palpitations, no chest pain, no syncope GI- distension, discomfort. -no urinary retention, no urinary incontinence, no dysuria, no hematuria Musculoskeletal-no joint pain, no muscle tenderness Skin-no bruising, no rashes, no pruritus Neuro-no isolated weakness, no paresthesia, no weakness Psych-no depression, no anxiety Physical Exam Physical Exam: General-alert and oriented x3, no fevers, no chills HEENT-head atraumatic and normocephalic, TMs intact bilaterally, pupils equal and reactive to light, extraocular muscles intact Neck-no lymphadenopathy or thyromegaly, trachea midline Chest-clear to auscultation percussion. No rales wheezing or rhonchi Cardiac-regular rate and rhythm, normal S1 and S2, no murmurs Abdomen-distended. Diffusely tender. No rebound or guarding Extremities-no cyanosis, clubbing, or edema Neuro-cranial nerves II through XII intact, motor and sensory function within normal limits, strength symmetrical 5/5, no focal deficits Psych-normal affect, normal mood Results & Data Results & Data ([facility]) Vital Signs (Past 12 Hours) Vital Signs Temp Pulse Resp BP Pulse Ox 08/14/21 10:46 37.1 C 93 H 17 116/72 91 08/14/21 02:25 36.7 C 97 H 18 153/84 H 92 Laboratory Results 08/14/21 09:45 08/14/21 09:45 PG Care Time/CCT Total # of Minutes Spent Total Time Spent with Patient: Total time spent is greater than 50% in coordination of care (as documented) at patient's floor/unit and/or counseling patient: Coding Level of Care Code 69425 Subseq Hosp Care Lvl 3 Diagnoses Abdominal ascites K70.31 Ascites type: due to alcoholic cirrhosis Cirrhosis K74.60 Bacterial conjunctivitis of left eye H10.9 Gallbladder dilatation K82.8 (1) Abdominal ascites Ascites type: due to alcoholic cirrhosis Qualified Code(s): K70.31 - Alcoholic cirrhosis of liver with ascites
[2021-08-14] MEDS: MoRPHine SULFATE 2 MG/ML CARP IV PRN ×2 (14:32→17:47)
[2021-08-14] MEDS: MOXIFLOXACIN HCL 0.5% OP SOLN 3 ML BTL OPL SCH ×4 (15:17→23:04)
[2021-08-14 15:34] LABS: Appearance Peritoneal Fluid CLEAR; Basophils, Fluid 0 %; Color Peritoneal Fluid PALE YELLOW; Eosinophils, Fluid 1 %; Lymphocytes, Fluid 34 %; Mono,Macrophage,Mesothelial 61 %; Neutrophils, Fluid 4 %; RBC Peritoneal Fluid (A) < 3000 /uL; WBC Peritoneal Fluid (A) 184 /ul (0-300)
--- NOTE | 2021-08-14 15:38 | Ultrasound Report ---
PROCEDURE: US paracentesis abd w/image CLINICAL HISTORY: Ascites. Abdominal distention and pain COMPARISON: None. FINDINGS: The entire procedure was explained to the patient including the risks, expected benefits, alternatives and potential complications. Written informed consent had been obtained. Limited sonography of the abdomen demonstrates ascites. A site for puncture was marked. The patient w as prepped with chloro prep. Sterile technique was utilized. Sterile drapes were applied to the patie nt. 1% lidocaine local anesthesia was administered. A paracentesis needle and catheter was advanced i nto the peritoneal cavity. The catheter was advanced into the peritoneal cavity and the needle was re moved. A total of 2 liters of clear straw-colored fluid was obtained. The catheter was removed and a bandage was placed over the punctured site. The patient tolerated the procedure well. There were no i mmediate complications. IMPRESSION: Technically successful ultrasound-guided paracentesis. 1 L of fluid was sent to the [facility] for analysis. ACT 112: Negative or not required by law. Electronically signed by: Cordell Wilkerson M.D. 08/14/2021 3:36 PM
[2021-08-14 15:47] LABS: Albumin Peritoneal Fluid < 0.6 g/dl; Amylase Peritoneal Fluid 23 U/L; LDH Peritoneal Fluid 52 U/L; Lipase Peritoneal Fluid 80 U/L; Total Protein Peritoneal Fluid 1.2 g/dl
[2021-08-14 16:41] LABS: Appearance Urine Cloudy (Clear); Bacteria Urine Automated Negative (Negative); Blood Urine Trace (Negative); Color Urine Orange; Glucose Urine UA Negative (Negative); Ketones Urine Trace (Negative); Leukocyte Esterase Urine 2+ (Negative); Nitrite Urine Positive (Negative); Protein Urine 1+ (Negative); RBC Urine Automated 0-4 /hpf (0-4); Specific Gravity Urine 1.029 (1.000-1.030); Urobilinogen Urine Positive (Negative); WBC Urine Automated >30 /hpf (0-5); pH Urine 6.5 (4.5-7.5)
[2021-08-14 16:57] LABS: Bilirubin Urine 1+ (Negative)
[2021-08-14 17:03] LABS: Calcium Oxalate Crystals Urine Present (None Prsent)
[2021-08-14 18:27] LABS: SARS CoV2 RNA(COVID-19) InHosp NEGATIVE (Negative)
[2021-08-14] MEDS: ONDANSETRON INJ 2 MG/ML 2 ML VIAL IV PRN (18:51)
[2021-08-14] MEDS: MELATONIN 3 MG TAB PO PRN (22:46)
[2021-08-15] MEDS: MOXIFLOXACIN HCL 0.5% OP SOLN 3 ML BTL OPL SCH ×7 (03:26→21:04)
[2021-08-15 06:28] LABS: Hematocrit (blood only) 34.9 % (42-52); Hemoglobin 11.8 g/dL (14.0-18.0); Mean Corpuscular Hemoglobin 35.1 pg (25-34); Mean Corpuscular Hgb Conc 33.8 g/dL (32-36); Mean Corpuscular Volume 103.9 fL (80-100); RDW Coefficient of Variation 14.2 % (11.5-14.5); RDW Standard Deviation 54.1 fL (36.4-46.3); Red Blood Count 3.36 M/uL (4.7-6.1); White Blood Count 4.36 K/uL (4.8-10.8)
[2021-08-15 06:42] LABS: Mean Platelet Volume 10.3 fL (7.4-10.4); Platelet Count 57 K/uL (130-400)
[2021-08-15 07:37] LABS: Albumin Level 1.8 gm/dl (3.4-5.0); BUN Creatinine Ratio 12.4 (10-20); Calcium 8.3 mg/dl (8.5-10.1); Est GFR (African American) 140.3 ml/min; Potassium 3.7 mmol/L (3.5-5.1)
[2021-08-15 07:59] LABS: Basophils # (auto) 0.01 K/uL (0-0.2); Basophils % (auto) 0.2 %; Eosinophils # (auto) 0.03 K/uL (0-0.5); Eosinophils % (auto) 0.7 %; Immature Granulocytes # (auto) 0.01 K/uL (0.00-0.02); Immature Granulocytes % (auto) 0.2 %; Lymphocytes # (auto) 0.77 K/uL (1.2-3.4); Lymphocytes % (auto) 17.7 %; Monocytes # (auto) 0.64 K/uL (0.11-0.59); Monocytes % (auto) 14.7 %; Neutrophils % (auto) 66.5 %
[2021-08-15 08:06] LABS: Albumin Globulin Ratio 0.4 (0.9-2); Bilirubin,Total 4.4 mg/dl (0.2-1); Globulin 4.9 gm/dl (2.5-4.0); Total Protein 6.7 gm/dl (6.4-8.2)
[2021-08-15] MEDS: FUROSEMIDE 40 MG TAB PO SCH (08:16)
[2021-08-15] MEDS: ERYTHROMYCIN OP OINT 5 MG/GM 3.5 GM TUBE OP SCH ×4 (08:16→21:04)
[2021-08-15] MEDS: SPIRONOLACTONE 100 MG TAB PO SCH (08:16)
[2021-08-15] MEDS ORDERED: MECLIZINE 12.5 MG TAB PO PRN (09:30)
--- NOTE | 2021-08-15 09:30 | History & Physical Bridge Note ---
Date of Service August 15, 2021 History & Physical Bridge Note I have examined the patient, reviewed the History & Physical and in the interval since the performance of the History & Physical I have noted the following changes of clinical significance: no changes noted. SAAG 1.2. Patient had 2L obtained during paracentesis. He has started Lasix & Aldactone. He has been NPO since prior to midnight. Proceed with EGD for further evaluation for esophageal varices.
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
--- NOTE | 2021-08-15 10:26 | Electrocardiogram Report ---
Test Reason : Blood Pressure : / mmHG Vent. Rate : 100 BPM Atrial Rate : 100 BPM P-R Int : 140 ms QRS Dur : 092 ms QT Int : 364 ms P-R-T Axes : 052 017 051 degrees QTc Int : 469 ms Normal sinus rhythm Normal ECG When compared with ECG of 06-JUN-2021 15:54, No significant change was found Confirmed by Medhat Aaron [id number]) on 08/15/2021 10:26:09 AM Referred By: REFERRED SELF Confirmed By:Medhat Aaron
[2021-08-15] MEDS ORDERED: LIDOCAINE 2% 2 ML VIAL/AMP(20MG/ML) INFIL ONE (10:28)
[2021-08-15] MEDS ORDERED: PROPOFOL IV EMULSION 10 MG/ML 20 ML VIAL IV ONE ×2 (10:28→11:01)
--- NOTE | 2021-08-15 11:00 | GI REPORT ---
Patient Name: Jasper Restrepo Procedure Date: 08/15/2021 10:26 AM Date of : 1965 Admit Type: Inpatient Age: 56 Gender: Male Attending MD: Alen Mae MD Procedure: Upper GI endoscopy Providers: Alen Mae MD Referring MD: Theo Coburn Indications: Cirrhosis rule out esophageal varices Medicines: Monitored Anesthesia Care Complications: No immediate complications. Estimated blood loss: None. Estimated Blood Loss: Estimated blood loss: none. Procedure: Pre-Anesthesia Assessment: - Prior Anticoagulants: The patient has taken no previous anticoagulant or antiplatelet agents. - ASA Grade Assessment: II - A patient with mild systemic disease. After obtaining informed consent, the endoscope was passed under direct vision. Throughout the procedure, the patient's blood pressure, pulse, and oxygen saturations were monitored continuously. The Endoscope was introduced through the mouth, and advanced to the second part of duodenum. The upper GI endoscopy was accomplished without difficulty. The patient tolerated the procedure well. Findings: Large (> 5 mm) varices were found at the gastroesophageal junction with stigmata of recent bleeding. They were large in size. One band was successfully placed with complete eradication, resulting in deflation of varices. There was no bleeding at the end of the procedure. Moderate portal hypertensive gastropathy was found in the stomach. Biopsies were taken with a cold forceps for Helicobacter pylori testing. Estimated blood loss: none. The duodenal bulb and second portion of the duodenum were normal. Impression: - Large (> 5 mm) esophageal varices. Completely eradicated. Banded. - Portal hypertensive gastropathy. Biopsied. - Normal duodenal bulb and second portion of the duodenum. Recommendation: - [facility]. - Clear liquid diet today. advance diet to 2g sodium diet tomorrow morning if stable. -repeat EGD in 4 weeks for variceal eradication/surveillance Alen Mae MD 08/15/2021 11:00:09 AM This report has been signed electronically. Note Initiated On: 08/15/2021 10:26 AM Number of Addenda: 0 I attest to the content of the Intraoperative Record and orders documented therein, exceptions below {[id number]}
[2021-08-15] MEDS: AMPICILLIN/SULBACTAM SOD 1,500 MG in 0.9 % SODIUM CHLORIDE 100 ML IV SCH ×2 (11:46→17:15)
--- NOTE | 2021-08-15 12:30 | Anesthesiology Progress Note ---
Date of Service August 15, 2021 Anesthesia Post Procedure Vital Signs Vital Signs: Temp Pulse Pulse Resp BP Pulse Ox 08/15/21 12:11 36.8 C 82 20 138/74 96 08/15/21 11:26 83 16 111/58 L 95 08/15/21 11:13 72 16 129/61 96 08/15/21 10:57 94 H 16 110/56 L 97 08/15/21 08:14 37.1 C 85 20 133/74 93 08/15/21 07:25 76 08/15/21 03:23 37.0 C 89 18 127/68 91 08/14/21 22:43 36.8 C 89 16 136/72 94 08/14/21 22:19 95 H 08/14/21 20:27 36.8 C 88 18 146/76 H 95 08/14/21 18:41 37.0 C 97 H 16 157/78 H 94 08/14/21 16:31 37.3 C 99 H 16 128/69 94 08/14/21 15:00 37.4 C 100 H 17 139/72 93 Pain Intensity Left Abdomen: Pain Intensity: 1 Transfer of Care Handoff Completed per policy Notes Mental Status: alert / awake / arousable and participated in evaluation Patient Amnestic to Procedure: Yes Nausea / Vomiting: adequately controlled Pain: adequately controlled Airway Patency, RR, SpO2: stable & adequate BP & HR: stable & adequate Hydration State: stable & adequate Anesthetic Complications: no major complications apparent
--- NOTE | 2021-08-15 13:46 | Hospitalist Progress Note ---
Date of Service August 15, 2021 Assessment & Plan (1) Abdominal ascites: Plan: 56yo male presenting with increased abdominal girth, ascites. Patient with history of Etoh use disorder, was drinking non-alcoholic beer until recently. Recent hospitalization with imaging suggestive of cirrhosis - patient does not follow with GI for this issue yet - states he does have a screening endoscopy scheduled for sometime next month. Prior hospital stay patient had labs tracy ggestive of cirrhosis. GI consult appreciated. Paracentesis has been done with aspiration of 2 L of transudative fluid. EGD today, August 15, to evaluate esophageal varices. He may require banding. Denies melena/hematochezia, hematemesis. H/H is stable Anti-smooth muscle antibody present raising concern for Autoimmune Hepatitis GI consultation appreciated. (2) Cirrhosis: Plan: Most likely due to alcohol induced cirrhosis. Autoimmune hepatitis/cirrhosis is also a possibility. 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 Appreciate gastroenterology consultation and recommendations. Avoid hepatotoxic agents. EGD today, August 15 (3) Bacterial conjunctivitis of left eye: Plan: actually ophthalmitis. Not a new dx. Patient has significant clouding of left eye, some drainage. States that he has lost all vision in his left eye - can occasionally see shadows. -Continue home meds. Outpatient follow-up with ophthalmology (4) Gallbladder dilatation: Plan: Noted on previous hospitalization as well. Patient had extensive workup, surgical consultation as well. He is having RUQ discomfort on exam - negative Watson's sign. -GI consult appreciated -Monitor clinically (5) Urinary tract infection: Plan: Enterococcus isolated. Unasyn started, day 1 Plan: Ppx - SCDs to bilateral LE Code - Full Dispo -to be determined . Hopefully eventual discharge to home Admission and Anticipated Discharge Date Admission Date: August 13, 2021 Subjective Alert and oriented. He still has some epigastric discomfort however. He has had some vertigo and meclizine will be administered as needed. He is now on Unasyn for enterococcal UTI. He will undergo EGD later today, August 15, eval uation of esophageal varices. Review of Systems Review of Systems: Constitutional-no fever or chills ENT-chronic visual loss left eye. No epistaxis, no sore throat Respiratory-no cough, no wheezing, no shortness of breath Cardiac-no palpitations, no chest pain, no syncope GI-epigastric discomfort. No hematemesis. No melena or hematochezia. -no urinary retention, no urinary incontinence, no dysuria, no hematuria Musculoskeletal-no joint pain, no muscle tenderness Skin-no bruising, no rashes, no pruritus Neuro-no isolated weakness, no paresthesia, no weakness Psych-no depression, no anxiety Physical Exam Physical Exam: General-alert and oriented x3, no fevers, no chills HEENT-head atraumatic and normocephalic, left ophthalmitis noted which is chronic, extraocular muscles intact Neck-no lymphadenopathy or thyromegaly, trachea midline Chest-clear to auscultation percussion. No rales wheezing or rhonchi Cardiac-regular rate and rhythm, normal S1 and S2, no murmurs Abdomen-normal bowel sounds, mildly tender epigastric area. He is status post paracentesis and ascites has resolved Extremities-no cyanosis, clubbing, or edema Neuro-cranial nerves II through XII intact, motor and sensory function within normal limits, strength symmetrical , no focal deficits Psych-depressed affect Results & Data Results & Data ([facility]) Vital Signs (Past 12 Hours) Vital Signs Temp Pulse Pulse Resp BP Pulse Ox 08/15/21 12:11 36.8 C 82 20 138/74 96 08/15/21 11:26 83 16 111/58 L 95 08/15/21 11:13 72 16 129/61 96 08/15/21 10:57 94 H 16 110/56 L 97 08/15/21 08:14 37.1 C 85 20 133/74 93 08/15/21 07:25 76 08/15/21 03:23 37.0 C 89 18 127/68 91 PG Care Time/CCT Total # of Minutes Spent Total Time Spent with Patient: Total time spent is greater than 50% in coordination of care (as documented) at patient's floor/unit and/or counseling patient: Coding Level of Care Code 91643 Subseq Hosp Care Lv 3 Diagnoses Abdominal ascites K70.31 Ascites type: due to alcoholic cirrhosis Cirrhosis K74.60 Bacterial conjunctivitis of left eye H10.9 Gallbladder dilatation K82.8 Urinary tract infection N39.0 (1) Abdominal ascites Ascites type: due to alcoholic cirrhosis Qualified Code(s): K70.31 - Alcoholic cirrhosis of liver with ascites
[2021-08-15] MEDS: HYDROmorphone INJ 2 MG/ML SYR/VIAL IV PRN (16:24)
[2021-08-15] MEDS: MELATONIN 3 MG TAB PO PRN (21:04)
[2021-08-16] MEDS: AMPICILLIN/SULBACTAM SOD 1,500 MG in 0.9 % SODIUM CHLORIDE 100 ML IV SCH ×5 (00:08→23:44)
[2021-08-16] MEDS: MOXIFLOXACIN HCL 0.5% OP SOLN 3 ML BTL OPL SCH ×9 (00:09→23:48)
[2021-08-16] MEDS: ERYTHROMYCIN OP OINT 5 MG/GM 3.5 GM TUBE OP SCH ×5 (00:09→20:12)
[2021-08-16] MEDS: HYDROmorphone INJ 2 MG/ML SYR/VIAL IV PRN (01:49)
[2021-08-16 06:27] LABS: Hematocrit (blood only) 34.8 % (42-52); Hemoglobin 11.4 g/dL (14.0-18.0); Mean Corpuscular Hemoglobin 34.5 pg (25-34); Mean Corpuscular Hgb Conc 32.8 g/dL (32-36); Mean Corpuscular Volume 105.5 fL (80-100); RDW Coefficient of Variation 13.9 % (11.5-14.5); RDW Standard Deviation 54.3 fL (36.4-46.3); White Blood Count 5.34 K/uL (4.8-10.8)
[2021-08-16 06:42] LABS: Mean Platelet Volume 10.7 fL (7.4-10.4); Platelet Count 61 K/uL (130-400)
[2021-08-16 07:01] LABS: Basophils # (auto) 0.01 K/uL (0-0.2); Basophils % (auto) 0.2 %; Eosinophils % (auto) 1.9 %; Immature Granulocytes # (auto) 0.01 K/uL (0.00-0.02); Immature Granulocytes % (auto) 0.2 %; Lymphocytes # (auto) 1.29 K/uL (1.2-3.4); Lymphocytes % (auto) 24.2 %; Monocytes # (auto) 0.68 K/uL (0.11-0.59); Monocytes % (auto) 12.7 %; Neutrophils # (auto) 3.25 K/uL (1.4-6.5); Neutrophils % (auto) 60.8 %
[2021-08-16 07:04] LABS: Albumin Globulin Ratio 0.4 (0.9-2); Albumin Level 1.8 gm/dl (3.4-5.0); BUN Creatinine Ratio 8.7 (10-20); Bilirubin,Total 3.9 mg/dl (0.2-1); Calcium 8.3 mg/dl (8.5-10.1); Creatinine Clr Calc Pharmacy 137.8 ml/min; Est GFR (African American) 124.6 ml/min; Est GFR (Non-African American) 107.5 ml/min; Globulin 4.7 gm/dl (2.5-4.0); Potassium 3.1 mmol/L (3.5-5.1); Total Protein 6.5 gm/dl (6.4-8.2)
[2021-08-16] MEDS: SPIRONOLACTONE 100 MG TAB PO SCH (09:08)
[2021-08-16] MEDS: FUROSEMIDE 40 MG TAB PO SCH (09:08)
[2021-08-16] MEDS: POTASSIUM CHLORIDE CRTAB 20 MEQ TABCR PO SCH (09:08)
--- NOTE | 2021-08-16 09:52 | Gastroenterology Progress Note ---
Date of Service August 16, 2021 Assessment & Plan (1) Cirrhosis: (2) Esophageal varices: Plan: -Recommend EGD in 4 weeks for retreatment. Our office is currently scheduling that and will notify patient of date/time. -Patient has a hospital follow-up appointment in our outpatient office on 08/30/21 at 4:20 PM -Continue Lasix 40 mg daily & Aldactone 100 mg daily. Added Potassium 20 meq daily. -Protonix 40 mg daily. -Ok to advance to 2 gm sodium restricted diet -Avoid substances that are harmful to the liver such as alcohol. Limit Tylenol to <2 gm daily. Avoid NSAIDs. -Can discuss further evaluation and work-up for cirrhosis as an outpatient. Admission and Anticipated Discharge Date Admission Date: August 13, 2021 Subjective Patient is a 56 yo male with cirrhosis. He underwent an EGD on 08/15/21 that indicated esophageal varices that were banded. He denies acute issues at present. He continues on Lasix & Aldactone. K was low this AM. Review of Systems Constitutional: no fever and no chills Respiratory: no cough and no dyspnea Gastrointestinal: no abdominal pain, no nausea, no vomiting and no blood in stools Physical Exam Constitutional: no acute distress Respiratory: normal respiratory effort, lungs clear to auscultation Cardiovascular: RRR, no murmur, no edema Gastrointestinal (Abdomen): Percussion/Palpation: + ascites (improved); abdomen nontender Psychiatric: Orientation: alert and oriented x 3 Results & Data Results & Data ([place]) Vital Signs (Past 12 Hours) Vital Signs Temp Pulse Pulse Resp BP BP Pulse Ox 08/16/21 07:05 77 08/16/21 06:55 36.8 C 74 16 113/68 94 08/16/21 03:32 36.9 C 89 18 113/58 L 95 08/15/21 22:51 36.8 C 82 18 124/65 96 08/15/21 22:19 71 PG Care Time/CCT Total # of Minutes Spent Total Time Spent with Patient: Total time spent is greater than 50% in coordination of care (as documented) at patient's floor/unit and/or counseling patient: Coding Level of Care Code 03438 Subseq Hosp Care Lvl 3 Diagnoses Cirrhosis K74.60 Esophageal varices I85.00
--- NOTE | 2021-08-16 12:30 | Hospitalist Progress Note ---
Date of Service August 16, 2021 Assessment & Plan (1) Abdominal ascites: Plan: 56yo male presenting with increased abdominal girth, ascites. History of alcoholic liver cirrhosis Presents with abdominal swelling, found to have ascites He is now post paracentesis, with removal of 2L of fluid (2) Esophageal varices: Plan: He had EGD yesterday, with ligation of varices by GI Will schedule surveillance EGD next month (3) Cirrhosis: Plan: Most likely due to alcohol induced cirrhosis. Autoimmune hepatitis/cirrhosis is also a possibility. 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 Appreciate gastroenterology consultation and recommendations. Avoid hepatotoxic agents. Continue lasix, aldactone (4) Bacterial conjunctivitis of left eye: Plan: actually ophthalmitis. Not a new dx. Patient has significant clouding of left eye, some drainage. States that he has lost all vision in his left eye - can occasionally see shadows. -Continue home meds. Outpatient follow-up with ophthalmology (5) Gallbladder dilatation: Plan: Noted on previous hospitalization as well. Patient had extensive workup, surgical consultation as well. He is having RUQ discomfort on exam - negative Watson's sign. -GI consult appreciated -Monitor clinically (6) Urinary tract infection: Plan: Enterococcus isolated. Unasyn started, will change to ceftriaxone Plan: Ppx - SCDs to bilateral LE Code - Full Dispo -to be determined . Hopefully eventual discharge to rehab Admission and Anticipated Discharge Date Admission Date: August 13, 2021 Subjective Patient seen and examined today, says abdomen seems a little bigger, had paracentesis and EGD Review of Systems Review of Systems: Constitutional-no fever or chills ENT-chronic visual loss left eye. No epistaxis, no sore throat Respiratory-no cough, no wheezing, no shortness of breath Cardiac-no palpitations, no chest pain, no syncope GI-epigastric discomfort. No hematemesis. No melena or hematochezia. -no urinary retention, no urinary incontinence, no dysuria, no hematuria Musculoskeletal-no joint pain, no muscle tenderness Skin-no bruising, no rashes, no pruritus Neuro-no isolated weakness, no paresthesia, no weakness Psych-no depression, no anxiety Physical Exam Physical Exam: The patient is awake, alert and oriented 3, well developed and well nourished, normocephalic and atraumatic, lying in bed and in no acute distress. HEENT--PERRL, EOMI, mucous membranes and oropharynx mildly dry Neck--supple. No JVD. No bruits. Thyroid normal, trachea midline, no stephania nopathy. Heart--normal S1 and S2. No murmurs, rubs or gallops. Lungs--clear bilaterally, no respiratory distress, no accessory muscle use. Abdomen--distension Extremities--no cyanosis or clubbing. No edema. Dermatologic--normal skin turgor, normal color, no abnormal lymph nodes, no rash. Neurologic--cranial nerves II through XII grossly intact. Rheumatologic--normal range of motion. Psychiatric--normal affect. Results & Data Results & Data ([facility]) Vital Signs (Past 12 Hours) Vital Signs Temp Pulse Pulse Resp BP BP Pulse Ox 08/16/21 11:01 98.2 F 97 H 18 120/66 92 08/16/21 07:05 77 08/16/21 06:55 98.2 F 74 16 113/68 94 08/16/21 03:32 98.4 F 89 18 113/58 L 95 Laboratory Results Laboratory Results - last 24 hr 08/16/21 08/16/21 05:51 05:51 WBC 5.34 RBC 3.30 L Hgb 11.4 L Hct 34.8 L MCV 105.5 H MCH 34.5 H MCHC 32.8 RDW Std Deviation 54.3 H RDW Coeff of Gerber 13.9 Plt Count 61 L MPV 10.7 H Immature Gran % (Auto) 0.2 Neut % (Auto) 60.8 Lymph % (Auto) 24.2 [place] % (Auto) 12.7 Eos % (Auto) 1.9 Baso % (Auto) 0.2 Neut # (Auto) 3.25 Lymph # (Auto) 1.29 [place] # (Auto) 0.68 H Eos # (Auto) 0.10 Baso # (Auto) 0.01 Immature Gran # (Auto) 0.01 Sodium 132 L Potassium 3.1 L D Chloride 96 L Carbon Dioxide 32 Anion Gap 4.0 BUN 6 L Creatinine 0.68 Est Cr Clr Drug Dosing 137.8 Est GFR ( Amer) 124.6 Est GFR (Non-Af Amer) 107.5 BUN/Creatinine Ratio 8.7 L Glucose 115 H Calcium 8.3 L Total Bilirubin 3.9 H AST 137 H ALT 60 Alkaline Phosphatase 83 Total Protein 6.5 Albumin 1.8 L Globulin 4.7 H Albumin/Globulin Ratio 0.4 L PG Care Time/CCT Total # of Minutes Spent Total Time Spent with Patient: Total time spent is greater than 50% in coordination of care (as documented) at patient's floor/unit and/or counseling patient: Coding Level of Care Code 67022 Subseq Hosp Care Lvl 2 Diagnoses Abdominal ascites K70.31 Ascites type: due to alcoholic cirrhosis Cirrhosis K74.60 Bacterial conjunctivitis of left eye H10.9 Gallbladder dilatation K82.8 Urinary tract infection N39.0 Esophageal varices I85.00 (1) Abdominal ascites Ascites type: due to alcoholic cirrhosis Qualified Code(s): K70.31 - Alcoholic cirrhosis of liver with ascites
[2021-08-16] MEDS: MELATONIN 3 MG TAB PO PRN (20:11)
[2021-08-17] MEDS: HYDROmorphone INJ 2 MG/ML SYR/VIAL IV PRN ×2 (00:25→23:08)
[2021-08-17] MEDS: MOXIFLOXACIN HCL 0.5% OP SOLN 3 ML BTL OPL SCH ×8 (03:26→23:06)
[2021-08-17] MEDS: AMPICILLIN/SULBACTAM SOD 1,500 MG in 0.9 % SODIUM CHLORIDE 100 ML IV SCH ×4 (05:55→23:02)
[2021-08-17] MEDS: SPIRONOLACTONE 100 MG TAB PO SCH (07:38)
[2021-08-17] MEDS: POTASSIUM CHLORIDE CRTAB 20 MEQ TABCR PO SCH (07:38)
[2021-08-17] MEDS: PANTOprazole 40 MG TAB PO SCH (07:38)
[2021-08-17] MEDS: FUROSEMIDE 40 MG TAB PO SCH ×2 (07:39→09:21)
[2021-08-17] MEDS: ERYTHROMYCIN OP OINT 5 MG/GM 3.5 GM TUBE OP SCH ×4 (07:39→20:19)
[2021-08-17] MEDS: ONDANSETRON INJ 2 MG/ML 2 ML VIAL IV PRN (07:41)
[2021-08-17 07:48] LABS: Hematocrit (blood only) 36.2 % (42-52); Hemoglobin 12.2 g/dL (14.0-18.0); Mean Corpuscular Hgb Conc 33.7 g/dL (32-36); Mean Corpuscular Volume 103.7 fL (80-100); RDW Coefficient of Variation 13.9 % (11.5-14.5); RDW Standard Deviation 52.1 fL (36.4-46.3); Red Blood Count 3.49 M/uL (4.7-6.1); White Blood Count 5.79 K/uL (4.8-10.8)
[2021-08-17 08:07] LABS: Basophils # (auto) 0.02 K/uL (0-0.2); Basophils % (auto) 0.3 %; Eosinophils # (auto) 0.09 K/uL (0-0.5); Eosinophils % (auto) 1.6 %; Immature Granulocytes # (auto) 0.01 K/uL (0.00-0.02); Immature Granulocytes % (auto) 0.2 %; Lymphocytes # (auto) 1.27 K/uL (1.2-3.4); Lymphocytes % (auto) 21.9 %; Mean Platelet Volume 10.8 fL (7.4-10.4); Monocytes # (auto) 0.89 K/uL (0.11-0.59); Monocytes % (auto) 15.4 %; Neutrophils # (auto) 3.51 K/uL (1.4-6.5); Neutrophils % (auto) 60.6 %; Platelet Count 74 K/uL (130-400)
[2021-08-17 08:19] LABS: Albumin Level 2.1 gm/dl (3.4-5.0); BUN Creatinine Ratio 4.6 (10-20); Calcium 7.8 mg/dl (8.5-10.1); Creatinine Clr Calc Pharmacy 148.2 ml/min; Est GFR (African American) 128.6 ml/min; Est GFR (Non-African American) 110.9 ml/min; Potassium 3.3 mmol/L (3.5-5.1)
[2021-08-17 08:22] LABS: Albumin Globulin Ratio 0.5 (0.9-2); Bilirubin,Total 3.8 mg/dl (0.2-1); Globulin 4.7 gm/dl (2.5-4.0); Total Protein 6.8 gm/dl (6.4-8.2)
--- NOTE | 2021-08-17 10:57 | Hospitalist Progress Note ---
Date of Service August 17, 2021 Assessment & Plan (1) Abdominal ascites: Plan: 56yo male presenting with increased abdominal girth, ascites. History of alcoholic liver cirrhosis Presents with abdominal swelling, found to have ascites He is now post paracentesis, with removal of 2L of fluid (2) Esophageal varices: Plan: He had EGD, with ligation of varices by GI Will schedule surveillance EGD 4 weeks after (3) Cirrhosis: Plan: Most likely due to alcohol induced cirrhosis. Autoimmune hepatitis/cirrhosis is also a possibility. 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 Appreciate gastroenterology consultation and recommendations. Avoid hepatotoxic agents. Continue lasix, aldactone (4) Bacterial conjunctivitis of left eye: Plan: actually ophthalmitis. Not a new dx. Patient has significant clouding of left eye, some drainage. States that he has lost all vision in his left eye - can occasionally see shadows. -Continue home meds. Outpatient follow-up with ophthalmology (5) Gallbladder dilatation: Plan: Noted on previous hospitalization as well. Patient had extensive workup, surgical consultation as well. He is having RUQ discomfort on exam - negative Watson's sign. -GI consult appreciated -Monitor clinically (6) Urinary tract infection: Plan: Enterococcus isolated. Unasyn started, Will complete 5 days. Today is day 3 Plan: Ppx - SCDs to bilateral LE Code - Full Dispo -to be determined . Hopefully eventual discharge to rehab Admission and Anticipated Discharge Date Admission Date: August 13, 2021 Subjective Patient seen and examined today, says he got up many times to urinate, refused his lasix Review of Systems Review of Systems: Constitutional-no fever or chills ENT-chronic visual loss left eye. No epistaxis, no sore throat Respiratory-no cough, no wheezing, no shortness of breath Cardiac-no palpitations, no chest pain, no syncope GI-epigastric discomfort. No hematemesis. No melena or hematochezia. -no urinary retention, no urinary incontinence, no dysuria, no hematuria Musculoskeletal-no joint pain, no muscle tenderness Skin-no bruising, no rashes, no pruritus Neuro-no isolated weakness, no paresthesia, no weakness Psych-no depression, no anxiety Physical Exam Physical Exam: The patient is awake, alert and oriented 3, well developed and well nourished, normocephalic and atraumatic, lying in bed and in no acute distress. HEENT--PERRL, EOMI, mucous membranes and oropharynx mildly dry Neck--supple. No JVD. No bruits. Thyroid normal, trachea midline, no smiley opathy. Heart--normal S1 and S2. No murmurs, rubs or gallops. Lungs--clear bilaterally, no respiratory distress, no accessory muscle use. Abdomen--distension Extremities--no cyanosis or clubbing. No edema. Dermatologic--normal skin turgor, normal color, no abnormal lymph nodes, no rash. Neurologic--cranial nerves II through XII grossly intact. Rheumatologic--normal range of motion. Psychiatric--normal affect. Results & Data Results & Data ([facility]) Vital Signs (Past 12 Hours) Vital Signs Temp Pulse Resp BP BP Pulse Ox 08/17/21 10:53 98.8 F 100 H 18 111/64 98 08/17/21 07:18 97.7 F 95 H 18 151/67 H 97 08/17/21 03:00 98.2 F 87 16 133/70 96 08/16/21 23:00 98.4 F 88 16 113/68 96 Laboratory Results Laboratory Results - last 24 hr 08/17/21 08/17/21 07:33 07:33 WBC 5.79 RBC 3.49 L Hgb 12.2 L Hct 36.2 L MCV 103.7 H MCH 35.0 H MCHC 33.7 RDW Std Deviation 52.1 H RDW Coeff of Gerber 13.9 Plt Count 74 L MPV 10.8 H Immature Gran % (Auto) 0.2 Neut % (Auto) 60.6 Lymph % (Auto) 21.9 [place] % (Auto) 15.4 Eos % (Auto) 1.6 Baso % (Auto) 0.3 Neut # (Auto) 3.51 Lymph # (Auto) 1.27 [place] # (Auto) 0.89 H Eos # (Auto) 0.09 Baso # (Auto) 0.02 Immature Gran # (Auto) 0.01 Sodium 134 L Potassium 3.3 L Chloride 97 L Carbon Dioxide 29 Anion Gap 7.0 BUN 3 L Creatinine 0.63 Est Cr Clr Drug Dosing 148.2 Est GFR ( Amer) 128.6 Est GFR (Non-Af Amer) 110.9 BUN/Creatinine Ratio 4.6 L Glucose 97 Calcium 7.8 L Total Bilirubin 3.8 H AST 143 H ALT 60 Alkaline Phosphatase 85 Total Protein 6.8 Albumin 2.1 L Globulin 4.7 H Albumin/Globulin Ratio 0.5 L PG Care Time/CCT Total # of Minutes Spent Total Time Spent with Patient: Total time spent is greater than 50% in coordination of care (as documented) at patient's floor/unit and/or counseling patient: Coding Level of Care Code 57446 Subseq Hosp Care Lvl 2 Diagnoses Abdominal ascites K70.31 Ascites type: due to alcoholic cirrhosis Esophageal varices I85.00 Cirrhosis K74.60 Bacterial conjunctivitis of left eye H10.9 Gallbladder dilatation K82.8 Urinary tract infection N39.0 (1) Abdominal ascites Ascites type: due to alcoholic cirrhosis Qualified Code(s): K70.31 - Alcoholic cirrhosis of liver with ascites
[2021-08-17] MEDS: MELATONIN 3 MG TAB PO PRN (23:08)
[2021-08-18] MEDS: MOXIFLOXACIN HCL 0.5% OP SOLN 3 ML BTL OPL SCH ×3 (02:15→08:02)
[2021-08-18] MEDS: AMPICILLIN/SULBACTAM SOD 1,500 MG in 0.9 % SODIUM CHLORIDE 100 ML IV SCH (06:11)
[2021-08-18] MEDS: FUROSEMIDE 40 MG TAB PO SCH (08:00)
[2021-08-18] MEDS: PANTOprazole 40 MG TAB PO SCH (08:00)
[2021-08-18] MEDS: POTASSIUM CHLORIDE CRTAB 20 MEQ TABCR PO SCH (08:00)
[2021-08-18] MEDS: SPIRONOLACTONE 100 MG TAB PO SCH (08:00)
[2021-08-18] MEDS: ERYTHROMYCIN OP OINT 5 MG/GM 3.5 GM TUBE OP SCH (08:02)
--- NOTE | 2021-08-18 10:25 | Discharge Summary ---
Date of Service August 18, 2021 Admission HPI Per Admitting Provider Jasper Restrepo is a 56yo male with history of prior EtOH use disorder liver cirrhosis presenting with worsening abdominal swelling, nausea, SOB and chills. Patient was admitted to [facility] in June 2021 for sepsis thought to be secondary to colitis. He was found to have left eye conjunctivitis with vision change, gallbladder distention, early cirrhotic changes of the liver and enlarged prostate. He was treated for these issues and discharged home. Patient returns today with 10 days of lower abdominal pain, poor appetite and decreased PO intake as well as non-bloody diarrhea, chills, nausea and SOB. He reports rapid swelling of his abdomen - unable to button his jeans. Patient states that he mostly drinks non-alcoholic beer but today he drank 3-4 regular alcoholic beers - 16oz cans. He denies fever but has some chills. Denies chest pain, palpitations. ER Course: Lasix 20mg IV, Morphine 4mg IV, Zofran 4mg IV Principal Diagnosis UTI, ascites from cirrhosis Discharge Exam The patient is awake, alert and oriented 3, well developed and well nourished, normocephalic and atraumatic, lying in bed and in no acute distress. HEENT--PERRL, EOMI, mucous membranes and oropharynx mildly dry Neck--supple. No JVD. No bruits. Thyroid normal, trachea midline, no adenopathy. Heart--normal S1 and S2. No murmurs, rubs or gallops. Lungs--clear bilaterally, no respiratory distress, no accessory muscle use. Abdomen--distension Extremities--no cyanosis or clubbing. No edema. Dermatologic--normal skin turgor, normal color, no abnormal lymph nodes, no rash. Neurologic--cranial nerves II through XII grossly intact. Rheumatologic--normal range of motion. Psychiatric--normal affect. Discharge Data Allergies Allergy/AdvReac Type Severity Reaction Status Date / Time bee venom protein (honey bee) Allergy Intermediate Migraine Verified 08/14/21 07:52 Headache Consultations 08/13/21 22:34 ED Decision to Admit Stat 08/14/21 04:35 Consult Gastroenterology Routine Procedures Performed Operation Date: 08/15/21 16:30 Actual Procedures p EGD Banding of Varices - Alen Mae MD s EGD Biopsy Cytology - Alen Mae MD Ordered Studies 08/13/21 19:36 CT abd pelvis IV con only Urgent 08/14/21 01:54 US duplex portal hepatic veins Urgent 08/14/21 13:00 US paracentesis abd w/image Routine Hospital Course (1) Abdominal ascites: 56yo male presenting with increased abdominal girth, ascites. History of alcoholic liver cirrhosis Presents with abdominal swelling, found to have ascites He is now post paracentesis, with removal of 2L of fluid (2) Esophageal varices: He had EGD, with ligation of varices by GI Will schedule surveillance EGD 4 weeks after (3) Cirrhosis: Most likely due to alcohol induced cirrhosis. Autoimmune hepatitis/cirrhosis is also a possibility. 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 Appreciate gastroenterology consultation and recommendations. Avoid hepatotoxic agents. Continue lasix, aldactone (4) Bacterial conjunctivitis of left eye: actually ophthalmitis. Not a new dx. Patient has significant clouding of left eye, some drainage. States that he has lost all vision in his left eye - can occasionally see shadows. -Continue home meds. Outpatient follow-up with ophthalmology (5) Gallbladder dilatation: Noted on previous hospitalization as well. Patient had extensive workup, surgical consultation as well. He is having RUQ discomfort on exam - negative Watson's sign. -GI consult appreciated -Monitor clinically (6) Urinary tract infection: Enterococcus isolated. Unasyn started, completed a course of Unasyn Ppx - SCDs to bilateral LE Code - Full Dispo -to be determined . Hopefully eventual discharge to rehab Total Time Total Time Spent Total Time Spent (In Minutes): 35 Discharge Plan Discharge Items Patient Disposition: Home - Self-Care Reason For Visit: EDEMA Discharge Diagnosis: liver cirrhosis, with ascites Activity: Resume your previous activity Non-emergency contact: Primary Care Provider Call non-emergency contact if: you have any medication questions Follow-up/Referrals: PCP,NO [Primary Care Provider] - Diet: Regular and Low Sodium (2gm) Addtl Attending Provider Instructions: please make appointment to follow up with your GI doctor for a repeat EGD in 1 month Pending Studies at Discharge: No Stand-Alone Forms: My [employer], Smoking Cessation Medications and DC Order Prescriptions: New furosemide 40 mg Tablet 40 mg PO QAM 30 Days Qty: 30 RF: 0 polyvinyl alcohol [Artificial Tears (polyvin alc)] 1.4 % Drops 2 drp ophthalmic (eye) Q2HWA PRN (Reason: dry eye(s)) 10 Days Qty: 1 RF: 0 spironolactone 100 mg Tablet 100 mg PO QAM 30 Days Qty: 30 RF: 0 potassium chloride 20 mEq Tablet,Er Particles/Crystals 20 meq PO QAM 30 Days Qty: 30 RF: 0 pantoprazole 40 mg Tablet,Delayed Release (Dr/Ec) 40 mg PO BID 30 Days Qty: 60 RF: 0 erythromycin 5 mg/gram (0.5 %) Ointment 1 applic ophthalmic (eye) QID 10 Days Qty: 1 RF: 0 moxifloxacin [Vigamox] 0.5 % Drops 1 drp OPL Q3H 10 Days Qty: 1 RF: 0 Discharge Orders: Discharge Order (Routine); Ordered 08/18/21 Ordered By: Naun Irizarry Admission Data Admit Date/Time: 08/13/21 23:50 Attending Provider: Naun Irizarry Admit Provider: Rebecca Ramey Primary Care Provider: PCP,NO Other Providers: [facility] ; Catrina Sloan ; Rebecca Ramey Other Interventions: Discharge Summary Assessment (RN) Last Done: 08/15/21 11:33 Coding Level of Care Code D/C DAY MANAGEMENT >30 MINS Diagnoses Abdominal ascites K70.31 Ascites type: due to alcoholic cirrhosis Esophageal varices I85.00 Cirrhosis K74.60 Bacterial conjunctivitis of left eye H10.9 Gallbladder dilatation K82.8 Urinary tract infection N39.0
== END 2021-08-18 11:43 | disposition home or self-care (01) | DRG 432 ==
LOC: ED 17:13 → SUATTDRO 23:50 → 2N 23:50